=== PATIENT | male | born 1955 | race Caucasian/White ===

== ENCOUNTER → 2017-07-02 08:46 | Outpatient (CLI) | payer OTHER, SELFPAY ==
[2017-07-02 10:18] LABS: Absolute Neutrophil Count 3.1 X10^3/uL (2.0-7.7); Basophil# 0.03 X10^3/uL; Basophil% 0.6 % (0-1); Eosinophils% 4.2 % (0-5); Hematocrit 37.6 % (40-54); Hemoglobin 12.5 g/dl (13.0-16.5); Lymphocyte % 21.1 % (19-41); Mean Corp Hgb Conc 33.2 g/gl (32-36); Mean Corpuscular Hgb 32.1 pg (27.0-32.0); Mean Corpuscular Volume 96.7 fL (80-94); Mean Platelet Vol. 11.3 fl (6.2-12.0); Monocyte# 0.45 X10^3/uL; Monocyte% 9.5 % (0-10); Neutrophil # 3.07 X10^3/uL (2.7-7.7); Neutrophil % 64.6 % (47-70); Platelet Count 267 K/mm3 (150-450); RBC Distribution Width SD 40.9 fl (35.1-43.9); Red Blood Count 3.89 M/mm3 (4.6-6.2); White Blood Count 4.8 K/mm3 (4.4-11.0)
[2017-07-02 10:19] LABS: POSITIVE COUNT NO; POSITIVE DIFFERENTIAL NO; POSITIVE MORPHOLOGY NO
[2017-07-02 10:35] LABS: Hemoglobin A1c 5.2 % (4.2-6.3)
[2017-07-02 10:53] LABS: Vitamin D,25 Hydroxy 21.8 ng/mL (19.95-100.01)
[2017-07-02 10:57] LABS: ALB/GLOB Ratio 1.2 RATIO (0.9-2.4); AST(SGOT) 24 U/L (15-37); Alanine Aminotransfer ALT/SGPT 26 U/L (16-61); Albumin, Serum 4.2 g/dL (3.2-5.0); Alkaline Phosphatase 24 U/L (45-117); Anion Gap 8 (5-15); BUN 19 mg/dL (7-18); BUN/Creat Ratio 14.2 RATIO (10-20); CRP < 2.90 mg/L (0.0-3.0); Calcium,Total 8.8 mg/dL (8.5-10.1); Chloride 108 mmol/L (98-107); Cholesterol 190 mg/dL (200); Creatinine, Serum 1.34 mg/dL (0.70-1.30); EST Glomerular Filtration Rate 58 mL/min (>60); Est Glom Filt Rate - Afr Amer 70 mL/min (>60); Globulin 3.4 g/dL (2.2-4.2); Glucose 95 mg/dL (74-106); High Density Lipoprotein 45 mg/dL; Potassium 4.2 mmol/L (3.5-5.1); Protein, Total 7.6 g/dL (6.4-8.2); Sodium Level 144 mmol/L (136-145); Triglycerides 62 mg/dL; Very Low Density Lipoprotein 12 mg/dL (5-40)
[2017-07-02 16:44] LABS: T4 Free Direct 0.68 ng/dL (0.76-1.46)
[2017-07-03 13:00] LABS: ANTINUCLEAR ANTIBODIES DIRECT Negative (Negative)
== END ==
PROVIDERS: Family Provider Family Medicine; PCP Family Medicine; Visit Provider Family Medicine
DX: M25.50 Pain in unspecified joint (principal); E78.00 Pure hypercholesterolemia, unspecified; R20.9 Unspecified disturbances of skin sensation; E03.9 Hypothyroidism, unspecified
CPT/HCPCS: 36415; 80053; 80061; 82306; 83036; 84439; 84443; 85025; 86038; 86140

== ENCOUNTER → 2017-09-04 10:03 | Outpatient (CLI) | payer OTHER, SELFPAY ==
[2017-09-04 14:38] LABS: T4 Free Direct 0.88 ng/dL (0.76-1.46)
[2017-09-10 11:39] LABS: Anti-Thyroglobulin AB > 2250.0 IU/mL (0.0-0.9); Thyroglobulin RIA 14 ng/mL (.); Thyroid Peroxidase AB > 600 IU/mL (0-34)
== END ==
PROVIDERS: Family Provider Family Medicine; PCP Family Medicine; Visit Provider Family Medicine
DX: E03.9 Hypothyroidism, unspecified (principal)
CPT/HCPCS: 36415; 84432; 84439; 84443; 86376; 86800

== ENCOUNTER → 2018-01-05 10:58 | Outpatient (CLI) | payer OTHER, SELFPAY ==
[2018-01-05 12:43] LABS: Absolute Lymphocyte Count 0.98 X10^3/ul (0.83-4.51); Absolute Neutrophil Count 2.9 X10^3/uL (2.0-7.7); Basophil# 0.03 X10^3/uL; Basophil% 0.7 % (0-1); Eosinophil# 0.11 X10^3/uL; Eosinophils% 2.5 % (0-5); Hematocrit 41.1 % (40-54); Hemoglobin 13.6 g/dl (13.0-16.5); Lymphocyte # 0.98 X10^3/ul (4.0); Lymphocyte % 22.1 % (19-41); Mean Corp Hgb Conc 33.1 g/gl (32-36); Mean Corpuscular Volume 96.7 fL (80-94); Monocyte# 0.37 X10^3/uL; Monocyte% 8.3 % (0-10); Neutrophil # 2.94 X10^3/uL (2.7-7.7); Neutrophil % 66.2 % (47-70); Platelet Count 261 K/mm3 (150-450); RBC Distribution Width CV 12.1 % (11.6-14.6); RBC Distribution Width SD 41.1 fl (35.1-43.9); Red Blood Count 4.25 M/mm3 (4.6-6.2); White Blood Count 4.4 K/mm3 (4.4-11.0)
[2018-01-05 12:45] LABS: POSITIVE COUNT NO; POSITIVE DIFFERENTIAL NO; POSITIVE MORPHOLOGY NO
[2018-01-05 13:09] LABS: Hemoglobin A1c 5.4 % (4.2-6.3)
[2018-01-05 13:30] LABS: ALB/GLOB Ratio 1.1 RATIO (0.9-2.4); AST(SGOT) 20 U/L (15-37); Alanine Aminotransfer ALT/SGPT 23 U/L (16-61); Albumin, Serum 4.2 g/dL (3.2-5.0); Alkaline Phosphatase 24 U/L (45-117); Anion Gap 7 (5-15); BUN 16 mg/dL (7-18); Calcium,Total 8.9 mg/dL (8.5-10.1); Chloride 108 mmol/L (98-107); Cholesterol 222 mg/dL (200); Creatinine, Serum 1.23 mg/dL (0.70-1.30); EST Glomerular Filtration Rate 64 mL/min (>60); Est Glom Filt Rate - Afr Amer 77 mL/min (>60); Free T3 2.2 pg/mL (2.18-3.98); Globulin 3.7 g/dL (2.2-4.2); Glucose 89 mg/dL (74-106); High Density Lipoprotein 50 mg/dL; Potassium 3.8 mmol/L (3.5-5.1); Protein, Total 7.9 g/dL (6.4-8.2); Sodium Level 143 mmol/L (136-145); T4 Free Direct 0.83 ng/dL (0.76-1.46); Thyroid Stim Hormone (TSH) 7.64 uIU/mL (0.358-3.74); Triglycerides 111 mg/dL; Very Low Density Lipoprotein 22 mg/dL (5-40)
== END ==
PROVIDERS: Family Provider Family Medicine; PCP Family Medicine; Visit Provider Family Medicine
DX: E78.00 Pure hypercholesterolemia, unspecified (principal); E03.9 Hypothyroidism, unspecified; N52.9 Male erectile dysfunction, unspecified; E88.81 Metabolic syndrome and other insulin resistance
CPT/HCPCS: 36415; 80053; 80061; 83036; 84439; 84443; 84481; 85025

== ENCOUNTER → 2018-07-07 10:15 | Outpatient (CLI) | payer BC, SELFPAY ==
[2018-07-07 13:23] LABS: Free T3 2.3 pg/mL (2.18-3.98); T4 Free Direct 0.99 ng/dL (0.76-1.46); Thyroid Stim Hormone (TSH) 5.07 uIU/mL (0.358-3.74)
== END ==
PROVIDERS: Family Provider Family Medicine; PCP Family Medicine; Visit Provider Family Medicine
DX: E03.9 Hypothyroidism, unspecified (principal)
CPT/HCPCS: 36415; 84439; 84443; 84481

== ENCOUNTER → 2018-09-15 | Outpatient (CLI) | payer BC, SELFPAY ==
[2018-09-15 10:42] LABS: T4 Free Direct 0.96 ng/dL (0.76-1.46)
== END | disposition home or self-care (01) ==
LOC: MFPLAB 08:19
PROVIDERS: Family Provider Family Medicine; PCP Family Medicine; Referring Provider Family Medicine; Visit Provider Family Medicine
DX: E03.9 Hypothyroidism, unspecified (principal)
CPT/HCPCS: 36415; 84439; 84443

== ENCOUNTER 2019-03-14 15:13 | Emergency (ER) | payer BC, SELFPAY ==
[2019-03-14 15:16] VITALS: BP 123/65; PULSE 43; RESP 20; TEMP 36.3; O2SAT 99; BMI 28.6
--- NOTE | 2019-03-14 17:04 | ED.VISSUMM ---
- ER Visit Summary Date of Service: 03/14/19 Chief Complaint: Umbilical hernia History of Present Illness: The patient is a [address] Mohinder Caldwell. He reports that he has had an umbilical hernia for years. States that today at 1:30 PM this has become painful and he is unable to reduce it. He currently describes a cramping pain Zeta 10 worsened 3-10 currently. Is worsened with standing or standing. Is relieved by laying down. Is had nausea without vomiting. No diarrhea. His last bowel was today. No melena hematochezia. He is still passing flatus. Physical Examination: Vitals: Stable. Afebrile. General: Well-nourished and well-developed. Head: Normocephalic atraumatic. Neck: Supple, no lymphadenopathy. No JVD. Nontender. Cardiovascular: Regular rate and rhythm. No murmurs. Respiratory: No respiratory distress. Clear to auscultation bilaterally. Abdominal: Soft, nontender, nondistended, normal bowel sounds. No guarding, rebound, or peritoneal signs. Approximately 3 cm hernia just superior to his umbilicus. There are herniated contents present. This is reduced without difficulty. Back: Nontender. Extremities: Nontender, no edema. Skin: Normal color, no rash. Neurologic: Alert and oriented ?3. Cranial nerves II through XII are intact. Normal strength and sensation. Psych: Normal affect. Emergency Department Course and Treatment: Patient had this hernia reduced with gentle pressure. He did not require pain medications. He tolerated this well. When he stood up the hernia did protrude again. However, he is able to reduce this without any difficulty at this time. Treatment Plan: I discussed the patient that if the hernia is unable to be reduced or becomes painful he should return to emerge department. He was also discussed with Dr. Emery. Instructed to follow-up 2 days for more definitive management of this. Return to the emergency department for any worsening symptoms. Disposition: To home in improved and stable condition. Impression: 1. Umbilical hernia. This note was generated with [employer] software. It may contain incorrect words, spelling, and punctuation that were not noted in review of the chart prior to signing ED Disposition - Plan for ED Patient: Disposition: Home or Assisted Living Instructions: HERNIA (Inguinal, Ventral, Umbilical) Referrals: Maximilian Farrell MD [STAFF PHYSICIAN] - 2 Days
[2019-03-14 17:13] VITALS: RESP 18
== END 2019-03-14 17:17 | disposition home or self-care (01) ==
PROVIDERS: Emergency Provider Emergency Medicine; Family Provider Family Medicine; PCP Family Medicine
DX: K42.9 Umbilical hernia without obstruction or gangrene (principal); E11.9 Type 2 diabetes mellitus without complications; E78.00 Pure hypercholesterolemia, unspecified; Z79.82 Long term (current) use of aspirin; Z79.84 Long term (current) use of oral hypoglycemic drugs; Z79.899 Other long term (current) drug therapy
CPT/HCPCS: 99282; A4216

== ENCOUNTER → 2019-03-25 09:40 | Outpatient (CLI) | payer BC, SELFPAY ==
[2019-03-14 15:16] VITALS: BMI 28.6
[2019-03-25 12:17] LABS: Absolute Lymphocyte Count 0.92 X10^3/uL (0.83-4.51); Absolute Neutrophil Count 2.7 X10^3/uL (2.0-7.7); Basophil# 0.03 X10^3/uL; Basophil% 0.7 % (0-1); Eosinophil# 0.12 X10^3/uL; Eosinophils% 2.8 % (0-5); Hematocrit 40.8 % (40-54); Hemoglobin 13.2 g/dL (13.0-16.5); Lymphocyte # 0.92 X10^3/ul (4.0); Lymphocyte % 21.7 % (19-41); Mean Corp Hgb Conc 32.4 g/dL (32-36); Mean Corpuscular Hgb 31.7 pg (27.0-32.0); Mean Corpuscular Volume 98.1 fL (80-94); Mean Platelet Vol. 10.9 fl (6.2-12.0); Monocyte# 0.41 X10^3/uL; Monocyte% 9.7 % (0-10); NRBC Flagged by Analyzer 0 % (0-5); Neutrophil # 2.73 X10^3/uL (2.7-7.7); Neutrophil % 64.6 % (47-70); Platelet Count 303 K/mm3 (150-450); RBC Distribution Width CV 11.8 % (11.6-14.6); RBC Distribution Width SD 42.6 fl (35.1-43.9); Red Blood Count 4.16 M/mm3 (4.6-6.2); White Blood Count 4.2 K/mm3 (4.4-11.0)
[2019-03-25 12:30] LABS: ALB/GLOB Ratio 1.2 RATIO (0.9-2.4); AST(SGOT) 21 U/L (15-37); Alanine Aminotransfer ALT/SGPT 27 U/L (16-61); Albumin, Serum 4.1 g/dL (3.2-5.0); Alkaline Phosphatase 30 U/L (45-117); Anion Gap 6 (5-15); BUN 20 mg/dL (7-18); BUN/Creat Ratio 16.4 RATIO (10-20); Calcium,Total 9.2 mg/dL (8.5-10.1); Chloride 110 mmol/L (98-107); Cholesterol 193 mg/dL (200); Creatinine, Serum 1.22 mg/dL (0.70-1.30); EST Glomerular Filtration Rate 64 mL/min (>60); Est Glom Filt Rate - Afr Amer 78 mL/min (>60); Globulin 3.4 g/dL (2.2-4.2); Glucose 96 mg/dL (74-106); High Density Lipoprotein 54 mg/dL; International Normalized Ratio 1.1; PSA,Total - Annual Screen 0.96 ng/mL (0.00-4.00); Potassium 4.3 mmol/L (3.5-5.1); Protein, Total 7.5 g/dL (6.4-8.2); Prothrombin Time (Protime)PT. 13.5 SECONDS (11.7-14.9); Sodium Level 144 mmol/L (136-145); T4 Free Direct 1.02 ng/dL (0.76-1.46); Thyroid Stim Hormone (TSH) 3.94 uIU/mL (0.358-3.74); Triglycerides 66 mg/dL; Very Low Density Lipoprotein 13 mg/dL (5-40)
[2019-03-25 12:31] LABS: Partial Thromboplast Time 30.2 Seconds (24.1-36.2)
== END ==
PROVIDERS: Family Provider Family Medicine; PCP Family Medicine; Visit Provider Family Medicine
DX: Z00.00 Encounter for general adult medical examination without abnormal findings (principal); K42.9 Umbilical hernia without obstruction or gangrene; E78.00 Pure hypercholesterolemia, unspecified; E03.9 Hypothyroidism, unspecified
CPT/HCPCS: 80053; 80061; 84153; 84439; 84443; 85025; 85610; 85730; G0103

== ENCOUNTER 2019-04-14 09:03 | Day surgery (SDC) | payer BC, SELFPAY ==
--- NOTE | 2019-04-13 19:06 | PCM.HP.BLA ---
History and Physical Date of Admission: 04/14/19 HISTORY AND PHYSICAL ? Shan Gomez 1955 ? ? REFERRING PHYSICIAN: ??Self, ? CHIEF COMPLAINT: ??Umbilical Hernia Repair- ? HPI: Shan is a 63 year old male with a complaint of?a bulge ?and discomfort ?in his?umbilical region. ?The patient notes discomfort in this area with lifting and coughing.??He has noticed a hernia there which has been relatively asymptomatic for a very long time. ?He still works lifting heavy items. ?On March 14 he was lifting pallets and/or stones and noted pain at his umbilicus. ?He presented to [facility] emergency department. ?The hernia was able to reduced with gentle pressure. ?He follows up now for semi-electively repair of his umbilical hernia. ? ? The patient notes no symptoms of bowel obstruction and denies nausea or vomiting. The patient was seen by?the emergency room physician?who felt the patient has a hernia. ?Shan was referred for evaluation and treatment. ? PAST MEDICAL HISTORY PAST MEDICAL HISTORY Diagnosis Date ? Arthritis ? ? Hypercholesteremia ? ? Hypothyroid ? ? Umbilical hernia ? ? ? PAST SURGICAL HISTORY PAST SURGICAL HISTORY Procedure Laterality Date ? NONE ? Current Outpatient Medications: Fenofibrate 120 mg tab Fenofibrate Fenofibrate Active 160 MG DAILY March 14, 2019 4:35pm 03-14-2019 ?[facility] ([id number]) metFORMIN (GLUCOPHAGE) 1,000 mg tablet metFORMIN Metformin Hcl Active 500 MG DAILY March 14, 2019 4:35pm 03-14-2019 ?[facility] ([id number]) aspirin, enteric coated (ASPIRIN, ENTERIC COATED) 81 mg EC tablet Aspirin Aspirin Active 81 MG DAILY@0800 March 14, 2019 5:15pm 03-14-2019 ?[facility] ([id number]) levothyroxine (SYNTHROID) 112 mcg tablet ? No current facility-administered medications for this visit.? ? ALLERGIES:?Patient has no known allergies. ? PERSONAL HISTORY:?Social History ??Socioeconomic History ?Marital status: ?Spouse name: Not on file ?Number of children: Not on file ?Years of education: Not on file ?Highest education level: Not on file ??Occupational History ?Not on file ??Social Needs ?Financial resource strain: Not on file ?Food insecurity: ?Worry: Not on file ?Inability: Not on file ?Transportation needs: ?Medical: Not on file ?Non-medical: Not on file ??Tobacco Use ?Smoking status: Former Smoker ?Smokeless tobacco: Never Used ??Substance and Sexual Activity ?Alcohol use: Yes ?Comment: once or twice a week ?Drug use: Not on file ?Sexual activity: Not on file ??Lifestyle ?Physical activity: ?Days per week: Not on file ?Minutes per session: Not on file ?Stress: Not on file ??Relationships ?Social connections: ?Talks on phone: Not on file ?Gets together: Not on file ?Attends protestant service: Not on file ?Active member of club or organization: Not on file ?Attends meetings of clubs or organizations: Not on file ?Relationship status: Not on file ?Intimate partner violence: ?Fear of current or ex partner: Not on file ?Emotionally abused: Not on file ?Physically abused: Not on file ?Forced sexual activity: Not on file ??Other Topics ?Concerns: ?Not on file ??Social History Narrative ?Not on file ?? ? FAMILY HISTORY:? FAMILY HISTORY FAMILY HISTORY Problem Relation Age of Onset ? Heart Mother ? ? Stroke Father ? ? Diabetes Father ? ? REVIEW OF SYMPTOMS: ??The review of systems data was entered by the nurse and reviewed by me ? Nursing Notes: Larissa Vergara LPN ?03/19/2019 ?1:35 PM ?Signed REVIEW OF SYSTEMS: ?General:???The patient denies fatigue, denies weight loss, denies weight gain, denies feeling hot, and denies feelings of cold. ?Eyes: ?The patient denies glaucoma, denies eye injury/surgery, does not wear glasses or contacts. ?Ear/Nose/Throat: ?The patient denies allergies, denies hayfever, NOTES ear infections, and denies bloody noses. ?Cardiovascular: ?The patient denies chest pain, denies heart disease, denies high blood pressure,denies cardiac stent, denies prior heart attack, denies irregular heart beat, NOTES high cholesterol, ?denies poor circulation, denies heart failure, other cardiac issues, denies claudication, denies cold feet, denies peripheral arterial stent. ?Respiratory: ?The patient denies tuberculosis, denies pneumonia, denies frequent cough, denies pulmonary embolism, denies shortness of breath, and denies coughing up blood. ?Gastrointestinal: ?The patient denies difficulty swallowing, denies acid reflux, denies ulcers, denies vomiting, denies jaundice/hepatitis, denies gallbladder problems, denies black or tarry stools, denies hemorrhoids, denies bleeding from rectum, denies diverticulitis, denies constipation, denies diarrhea, denies loss of stool control, and NOTES hernias. ?Kidney/Bladder: ?The patient denies kidney stones, denies urine infections, and denies bloody urine. ?Skin: ?The patient denies a history of skin cancer, denies bleeding/changing moles, and denies a history of skin rash. ?Neurologic: ?The patient denies a history of epilepsy/convulsions, denies headaches, denies head/spinal injuries, and denies stroke/TIA. ?Psychiatric: ?The patient denies psychiatric medications, denies depression, and denies voices, denies substance abuse. ?Endocrine: ?The patient NOTES thyroid disorders, denies diabetes, and denies hormonal problems. ?Hematologic: ?The patient denies a history of bruising, denies bleeding, and denies anemia, denies blood clots. ?Infections: ?The patient denies a history of measles and mumps, denies rheumatic fever, and denies sexually transmitted diseases. ?Musculoskeletal: ?The patient denies back pain/injury, denies back problems, denies sciatica, denies knee/foot trouble, NOTES arthritis, or denies gout. ? ? When was patient's last Mammogram screening? N/A ? ?Last Colonoscopy: ?None ? Larissa Vergara LPN ? PHYSICAL EXAMINATION: ? General: ?The patient is 63 year old male, well nourished, well hydrated in no acute distress. ?The patient is oriented to time, place, and person. ? VITALS:?Blood pressure 150/66, pulse 63, temperature 36.6 ?C (97.9 ?F), temperature source Temporal Artery, resp. rate 18, height 170.2 cm (5' 7), weight 83.5 kg (184 lb), SpO2 98 %.?Body mass index is 28.82 kg/m?.? ? HEENT: ?Normal cephalic, ataumatic, pupils are equally round, sclera are anicteric, mucous membranes are moist, oropharynx is clear. ?Neck has no masses, asymmetry or lymphadenopathy. ?Thyroid is unremarkable. ? Respiratory: ?Clear to auscultation and percussion. ?Normal respiratory excursion and pattern. ? Cardiac: ?Examination is regular rate and rhythm. ? Abdominal exam: ?Soft, nontender, ?with no palpable masses. ?No hepatosplenomegaly. ?A?small, reducible umbilical hernia, no right or left inguinal hernias are noted ? Rectal exam:??exam deferred ? Extremities: ?no clubbing, cyanosis or edema. ?No adenopathy. ? Other: ? ? LABORATORY VALUES: As Noted ? RADIOLOGIC STUDIES: ?As Noted ? Assessment ? IMPRESSION:?umbilical hernia ? PLAN: ??My plan is to perform a umbilical hernia repair with?possible?mesh. ?The planned surgical procedure was discussed extensively with the patient. ?The risks, benefits, anticipated outcomes and possible complications were mentioned. ?Shan skelton that all hernia repair surgery has a chance of recurrence and/or chronic post operative pain. ?My staff has also explained the procedure in understandable terms and the patient was given the option to take printed material concerning the planned procedure. ?The patient had the opportunity to ask questions concerning the planned procedure. ?The patient freely consents to the planned procedure. ? ? ? A letter was sent to ?No primary care provider on file.?indicating the above finding for this patient. ? Diagnoses:?(K42.9) Umbilical hernia without obstruction and without gangrene ?(primary encounter diagnosis) ? Anticipated CPT Code:?umbilical hernia repair ?- 24808-889 ? Anticipated Anesthetic:?General ? Patient weight:??Blood pressure 150/66, pulse 63, temperature 36.6 ?C (97.9 ?F), temperature source Temporal Artery, resp. rate 18, height 170.2 cm (5' 7), weight 83.5 kg (184 lb), SpO2 98 %.?BMI: ?Body mass index is 28.82 kg/m?. ? Planned antibiotic:?Ancef 2gm IVPB regional clinical director to OR ? SCDs needed -?Yes ? Return to Clinic: The patient is instructed to follow-up with me?1 week post operatively. ? Maximilian Farrell MD
[2019-04-14] VITALS (8 sets, daily range): BP systolic 99–180; BP diastolic 58–82; PULSE 43–84; RESP 16; TEMP 36.2–36.8; O2SAT 91–100; BMI 29.4
--- NOTE | 2019-04-14 09:18 | EKG12_ITS ---
Test Reason : PREOP Blood Pressure : / mmHG Vent. Rate : 047 BPM Atrial Rate : 047 BPM P-R Int : 184 ms QRS Dur : 106 ms QT Int : 420 ms P-R-T Axes : 028 -37 -01 degrees QTc Int : 371 ms Sinus bradycardia with Premature atrial complexes Left axis deviation Abnormal ECG When compared with ECG of 15-MAY-2006 11:32, Premature atrial complexes are now Present Confirmed by MARIO ESTRELLA, SHERYL ([id number]), editor school photograph DERRELL ASHER ([id number]) on 04/19/2019 10:17:26 AM Referred By: Maximilian Farrell Confirmed By:SHERYL MARTIN MD
[2019-04-14] MEDS: Lactated Ringers 1,000 ML 100 ML IV (09:35)
[2019-04-14 09:46] LABS: Bedside Glucose 93 mg/dL (70-110)
[2019-04-14 09:56] LABS: Hemoglobin A1c 5.3 % (4.2-6.3)
--- NOTE | 2019-04-14 10:50 | HERN_PTH ---
PATIENT: FLORY ORTIZ LOC: [facility] [place] U#:[id number] AGE/SX: 63/M ROOM: RE04/14/[address]: Dr. Maximilian Farrell MD : 1955 BED: DIS: 04/14/2019 SPEC #: [id number] RECD: 04/14/19 16:08 STATUS: KRUNAL REQ #: [id number] ANANYA: 04/14/19 10:[address]: Maximilian Farrell DEPT: SURGICAL PATHOLOGY RECD BY: Sid Lopez ENTERED: 04/15/19 11:23 SP TYPE: Hernia OTHR DR: Dr. Mohinder Caldwell MD Tissues: HERNIA Procedures: Surgery Specimen Level II HEADER OPERATION: Umbilical hernia repair PRE-OP DIAGNOSIS: Umbilical hernia TISSUE SUBMITTED: Hernia sac MICROSCOPIC DIAGNOSIS Hernia sac: Fragments of fibroadipose and fibroconnective tissue, consistent with hernia sac. SJ:sumaya 04/16/19 MICROSCOPIC DESCRIPTION Slides are reviewed. GROSS DESCRIPTION Received in fixative is one container labeled with the patient's name and designated hernia sac. The specimen consists of two irregular fragments of light larios soft tissue that in aggregate measure 3 x 2.5 x 0.3 cm. No mass lesion is identified. The entire specimen is submitted in one cassette. / SJ:rg 04/15/19 TC:5 CPT: 09150
[2019-04-14] MEDS: Cefazolin 2 GM in 0.9% Normal Saline 100 ML IV (10:51)
[2019-04-14] MEDS: Bupivacaine Mpf 0.5% 30 ML VIAL (11:49)
--- NOTE | 2019-04-14 11:54 | PCM.OPRPT ---
Report of Operation Date of Procedure: 04/14/19 Pre-Operative Diagnosis: umbilical hernia Post-Operative Diagnosis: umbilical hernia Surgery/Procedure Performed:: umbilical hernia repair with mesh - 6.4cm ventralex Anesthesiologist: Darrius Cevallos - ASA3 Specimen's removed: hernia sac Estimated Blood Loss (mL): 5 Fluids Replaced: 800 Description of Procedure: The patient was brought to the operating suite. Sign in was performed verifying patient, site, procedure, position, and DVT prophylaxis with SCDs. Patient received 2 g Ancef antibiotic prophylaxis. Following induction of general anesthetic, the patient?s abdomen was prepped and draped in the usual fashion. Timeout was performed verifying patient, site, position. Local anesthetic was injected . A curvilinear incision was made and dissection carried down to the umbilical root fascia. Dissection was continued around the umbilical root and the umbilical skin was dissected off the hernia sac. An extraperitoneal space was created. The fascia was noted to be weak and therefore mesh was planned to be placed. The hernia sac was opened to clean fascial margin yielding a defect approximately 1-1/2 cm. A preperitoneal space was created sharply and using electrocautery to allow placement of the mesh. The ventralex ST medium sized or 6.4 cm mesh was then secured in the preperitoneal space at the outer ring with 8 interrupted 0 Prolene sutures. Then multiple interrupted 0 Prolene sutures were placed at the inner fascial margin to the mesh. The 2 tails were cut to length and secured to the anterior fascia. Following this the umbilical root was tacked back down with a 3-0 Vicryl suture. Subcutaneous fat was closed with interrupted 3-0 Vicryl suture. Skin was closed with a running 4-0 Monocryl subcuticular sutures. Steri-Strips and bandages were applied. The patient was brought to recovery room in stable condition. Grafts/Implants Used: 6.4cm ventralex - Ref [id number] Lot [id number] Exp 01/20/2021
--- NOTE | 2019-04-14 11:55 | DCINST_ITS ---
Discharge Diet: Light diet - advance as tolerated Discharge Activity: Return to Normal Activity, May Drive - when you are no longer taking narcotic pain medications., May Shower - with the bandage in place 1-2 days after surgery. Lifting Restrictions: 20 pounds for 8 weeks. Additional Activity Instructions:: Climbing stairs is fine, walking is encouraged. Sitting in bed may be uncomfortable. Sitting up using your lateral muscles (sitting up sideways) is usually more comfortable. Do not drive, work heavy equipment of sign legal documents for 24 hours. If your hernia repair was an ingunial repair, you may have scrotal swelling, an ice pack and/or athletic support can provide more comfort. Pain medications may cause nausea, you should typically eat light foods as you take your pain medications. Pain medications may also cause constipation. If you have difficulty with this, discuss with your doctor. Call your doctor if your incision/area has: Continuous Slow Oozing, Sudden Increased Bleeding, Increased Pain/ Swelling, Increased Redness, Foul Smelling Discharge Call your doctor if you observe: Fever of 101 or Higher Suture Line Care: Avoid Pulling/Pushing, Avoid Pinching/Bending Additional Dressing/Incision Instructions:: Leave the operative bandage on for 2-3 days. When you remove the bandage, leave the steri-strips on place until your follow up appointment or they fall off. Allergies/Adverse Reactions: Allergies No Known Allergies Allergy (Verified 04/14/19 09:22) Medications to take at Discharge Aspirin [Aspirin, Baby] 81 mg PO DAILY@0800 03/14/19 Fenofibrate 160 mg PO DAILY 03/14/19 Levothyroxine Sodium [Synthroid] 125 mcg PO DAILY 03/14/19 Metformin HCl [Metformin HCl ER] 500 mg PO DAILY 03/14/19 Cholecalciferol (Vitamin D3) [Vitamin D3] 1,000 unit PO DAILY 04/07/19 Multivitamin with Minerals [Multiple Vitamin] 1 ea PO DAILY 04/07/19 Oxycodone HCl/Acetaminophen [Percocet 5/325] 1 tab PO Q4H PRN PRN 5 Days #12 tab 04/14/19 The following prescriptions were given: Oxycodone HCl/Acetaminophen [Percocet 5/325] 1 tab PO Q4H PRN PRN 5 Days #12 tab PRN Reason: Pain Prescription Printed Primary Care Physician: Mohinder Caldwell MD [Primary Care Provider] - Test Results: Test results from this visit will be discussed in further detail at your follow- up appointment, if applicable. Please Follow Up With: Maximilian Farrell MD - [phone] When: Plan to have a follow up appointment in 7 days. Call to schedule.
[2019-04-14] MEDS: Lactated Ringers 1,000 ML 75 ML IV (12:24)
[2019-04-14] MEDS: oxyCODONE 5 MG Tablet PO (13:10)
== END 2019-04-14 13:45 | disposition home or self-care (01) ==
LOC: SDC 09:04 → AC 09:06
PROVIDERS: Anesthesiology; Family Provider Family Medicine; PCP Family Medicine; Referring Provider Surgery; Visit Provider Surgery
PROC: (CPT 49585; principal; 2019-04-14 10:35)
DX: K42.9 Umbilical hernia without obstruction or gangrene (principal); M19.90 Unspecified osteoarthritis, unspecified site; E78.00 Pure hypercholesterolemia, unspecified; E03.9 Hypothyroidism, unspecified; E11.9 Type 2 diabetes mellitus without complications; Z79.84 Long term (current) use of oral hypoglycemic drugs; Z79.82 Long term (current) use of aspirin; Z79.899 Other long term (current) drug therapy; Z87.891 Personal history of nicotine dependence
CPT/HCPCS: 49585; 36415; 82962; 83036; 88302; 93005; C1781; J7120; J2405

== ENCOUNTER → 2020-03-28 09:32 | Outpatient (CLI) | payer BC, SELFPAY ==
[2019-04-14 09:24] VITALS: BMI 29.4
[2020-03-28 12:07] LABS: Absolute Lymphocyte Count 1.16 X10^3/uL (0.83-4.51); Absolute Neutrophil Count 2.9 X10^3/uL (2.0-7.7); Basophil# 0.04 X10^3/uL; Basophil% 0.8 % (0-1); Eosinophil# 0.18 X10^3/uL; Eosinophils% 3.8 % (0-5); Hematocrit 43.1 % (40-54); Hemoglobin 13.8 g/dL (13.0-16.5); Lymphocyte # 1.16 X10^3/ul (4.0); Lymphocyte % 24.3 % (19-41); Mean Corpuscular Hgb 31.3 pg (27.0-32.0); Mean Corpuscular Volume 97.7 fL (80-94); Mean Platelet Vol. 10.9 fl (6.2-12.0); Monocyte# 0.48 X10^3/uL; Monocyte% 10.1 % (0-10); NRBC Flagged by Analyzer 0 % (0-5); Neutrophil % 60.8 % (47-70); Platelet Count 286 K/mm3 (150-450); RBC Distribution Width CV 11.8 % (11.6-14.6); RBC Distribution Width SD 42.6 fl (35.1-43.9); Red Blood Count 4.41 M/mm3 (4.6-6.2); White Blood Count 4.8 K/mm3 (4.4-11.0)
[2020-03-28 12:31] LABS: ALB/GLOB Ratio 1.2 RATIO (0.9-2.4); AST(SGOT) 24 U/L (15-37); Alanine Aminotransfer ALT/SGPT 30 U/L (16-61); Albumin, Serum 4.3 g/dL (3.2-5.0); Alkaline Phosphatase 33 U/L (45-117); Anion Gap 6 (5-15); BUN 22 mg/dL (7-18); BUN/Creat Ratio 16.9 RATIO (10-20); Calcium,Total 8.8 mg/dL (8.5-10.1); Chloride 105 mmol/L (98-107); Cholesterol 221 mg/dL (200); EST Glomerular Filtration Rate 59 mL/min (>60); Est Glom Filt Rate - Afr Amer 72 mL/min (>60); Globulin 3.6 g/dL (2.2-4.2); Glucose 85 mg/dL (74-106); High Density Lipoprotein 57 mg/dL; Protein, Total 7.9 g/dL (6.4-8.2); Sodium Level 140 mmol/L (136-145); Thyroid Stim Hormone (TSH) 3.83 uIU/mL (0.358-3.74); Triglycerides 144 mg/dL; Very Low Density Lipoprotein 29 mg/dL (5-40)
== END ==
PROVIDERS: PCP Family Medicine; Referring Provider Family Medicine; Visit Provider Family Medicine
DX: M19.90 Unspecified osteoarthritis, unspecified site (principal); E78.00 Pure hypercholesterolemia, unspecified; E03.9 Hypothyroidism, unspecified
CPT/HCPCS: 36415; 80053; 80061; 84443; 85025

== ENCOUNTER → 2021-03-30 09:39 | Outpatient (CLI) | payer BC, SELFPAY ==
--- NOTE | 2021-03-30 09:42 | RAD_ITS ---
STUDY: X-RAY - PELVIS REASON FOR EXAM: Male, 65 years old. PAIN TECHNIQUE: One view of the pelvis was obtained. COMPARISON: None. FINDINGS: There is a non-specific bowel gas pattern. Normal visualized soft tissue structures. Normal bilateral iliac wings, sacroiliac joints and visualized sacrum. Normal visualized bilateral superior and inferior pubic rami. Normal pubic symphysis. Normal ischial tuberosities. Normal visualized right femoral head. Normal right acetabulum. Normal right hip joint. Normal visualized left femoral head. Normal left acetabulum. Normal left hip joint. RAD/Pelvis 1 or 2 Views IMPRESSION: Normal x-ray examination of the pelvis. Electronically Signed: Manuel Dewitt MD at 10:31 EDT , Service support ,
[2021-03-30 12:48] LABS: Hemoglobin A1c 5.2 % (3.8-5.6)
[2021-03-30 12:52] LABS: ALB/GLOB Ratio 1.2 RATIO (0.9-2.4); AST(SGOT) 30 U/L (15-37); Alanine Aminotransfer ALT/SGPT 33 U/L (16-61); Albumin, Serum 4.3 g/dL (3.2-5.0); Alkaline Phosphatase 31 U/L (45-117); Anion Gap 5 (5-15); BUN 17 mg/dL (7-18); BUN/Creat Ratio 12.7 RATIO (10-20); Calcium,Total 9.4 mg/dL (8.5-10.1); Chloride 107 mmol/L (98-107); Cholesterol 219 mg/dL (200); Creatinine, Serum 1.34 mg/dL (0.70-1.30); EST Glomerular Filtration Rate 57 mL/min (>60); Est Glom Filt Rate - Afr Amer 69 mL/min (>60); Globulin 3.6 g/dL (2.2-4.2); Glucose 95 mg/dL (74-106); High Density Lipoprotein 56 mg/dL; Potassium 4.3 mmol/L (3.5-5.1); Protein, Total 7.9 g/dL (6.4-8.2); Sodium Level 141 mmol/L (136-145); T4 Free Direct 1.09 ng/dL (0.76-1.46); Triglycerides 72 mg/dL; Very Low Density Lipoprotein 14 mg/dL (5-40)
== END ==
PROVIDERS: PCP Family Medicine; Referring Provider Family Medicine; Visit Provider Family Medicine
DX: Z00.00 Encounter for general adult medical examination without abnormal findings (principal); E03.9 Hypothyroidism, unspecified; E66.3 Overweight; M54.50 Low back pain, unspecified; E88.81 Metabolic syndrome and other insulin resistance
CPT/HCPCS: 36415; 72170; 80053; 80061; 83036; 84439; 84443

== ENCOUNTER 2021-04-30 18:30 | Outpatient (RCR) | payer BC, SELFPAY ==
--- NOTE | 2021-04-09 19:34 | HP.PTEVAL ---
Patient's Visit Information FLORY ORTIZ is a 65 year old M referred to Physical Therapy by Dr. Mohinder Caldwell MD with a diagnosis of LUMBAR BACK PAIN. Date of Evaluation: 04/09/21 Physical Therapist: Dann Shell PT, Cert MDT, OCS - Visit Plan Frequency: 2x /Week Duration: 4 Weeks Plan: PT INTERVETIONS DLS ,LUMBAR ROM ,POSTURAL EX'S AND MODALTIES - Subjective This 65 y/o male presents to physical therapy with back pain. Patient has right lumbar pain ~ 4 months. Patient had no mechanism injury ,just insidious onset. Pain is located right side. Seen DR hough PT . X-rays pelvis -. Pain does occasional radiate to hip. Aggravating twisting, leaning back ,laying on right side, driving affects. Alleviating walking ,movement better. Coughing /sneezing -. Bowel/bladder -. Bowel/bladder -. Pain can affects sleeping. No h/o trauma. Patient symptoms affects QOL and function. SOCIAL: . VOCATION: retired. SOCIAL: single - Pain Right Back Pain Intensity (Out of 10): 3 Pain Intensity Range: 10 - Objective POSTURE: mild forward posture. GAIT: reciprocal pattern. NEURO: denies paresthesia/tingling reflexes L3-4,L4-5,L5-S1 2/3. PALAPTION: right SI. SYMMTRIES: align. LUMBAR ROM: flexion min loss, extension mod loss pain ,side glides mod loss to right with pain, left min loss. FLEXABLITY: hams WFL - Special Tests L/S Slump test left side: Negative L/S Slump test right side: Negative L/S Left Straight Leg Raise: Negative L/S Right Straight Leg Raise: Negative Lumbar Standing: Flexion - Mechanical Response: No effect Lumbar Standing: Flexion - Symptoms During Testing: No effect Lumbar Standing: Flexion - Symptoms After Testing: No effect Lumbar Standing: Extension - Mechanical Response: No effect Lumbar Standing: Extension - Symptoms During Testing: Increases Lumbar Standing: Extension - Symptoms After Testing: No worse Lumbar Standing: Right Side Glides - Mechanical Response: No effect Lumbar Standing: Right Side [place] - Symptoms During Testing: Increases Lumbar Standing: Right Side [place] - Symptoms After Testing: No worse Lumbar Standing: Left Side [place] - Mechanical Response: No effect Lumbar Standing: Left Side [place] - Symptoms During Testing: No effect Lumbar Standing: Left Side [place] - Symptoms After Testing: No effect Lumbar Lying: Flexion - Mechanical Response: No effect Lumbar Lying: Flexion - Symptoms During Testing: Increases Lumbar Lying: Flexion - Symptoms After Testing: No worse Lumbar Lying: Extension - Mechanical Response: No effect Lumbar Lying: Extension - Symptoms During Testing: Increases Lumbar Lying: Extension - Symptoms After Testing: No worse - Balance/Special Test Scores Oswestry Low Back Score: 13 - Goals Goal 1:: I with HEP for back pain Goal Time Frame: 4-6 Weeks Goal 2:: Patient to improve posture /body mechanics 90 % of the time Goal Time Frame: 4-6 Weeks Goal 3:: Patient to demonstrate 50% improvement with decrease back pain to improve function Goal Time Frame: 4-6 Weeks Goal 4:: Patient improve lumbar ROM for function of recovery Goal Time Frame: 4-6 Weeks Goal 5:: Patient improve back owestry score by 5 points to improve function and QOL Goal Time Frame: 4-6 Weeks - Rehabilitation Potential Physical Therapy Diagnosis: This patient has right lumbar pain with pain with extension and side glides to right affects certain activities and function thus benefit from skilled PT Rehabilitation Potential: Good - Anticipated Interventions Patient/Client Instruction: Educate patient on: Condition, Plan of Care For the Purpose of:: To decrease pain, To increase ROM, To improve muscle performance and motor function, To improve ability to perform ADL's, To increase tolerance to activity/condition/position, To improve ability of physical actions for home/community/work/leisure, To improve health of tissue, To decrease soft tissue restriction, To increase flexibility/ROM, To reduce risk of recurrence, To prevent re-injury Therapeutic Exercise to Include: Strength training, Endurance training, Body mechanics, Postural training, Flexibilty training, Active ROM, Dynamic Lumbar Stabilization, Jeni Exercises For the Purpose of:: To decrease pain, To increase ROM, To improve muscle performance and motor function, To improve ability to perform ADL's, To increase tolerance to activity/condition/position, To improve ability of physical actions for home/community/work/leisure, To improve health of tissue, To decrease soft tissue restriction, To increase flexibility/ROM, To reduce risk of recurrence, To prevent re-injury TENS: Yes IF ES: Yes Cryotherapy (ice pack, ice massage): Yes Thermo therapy (hot pack): Yes Ultrasound (thermal/non thermal): Yes For the Purpose of:: To decrease pain, To increase ROM, To improve nutrient delivery to tissue, To increase oxygenation perfusion, To improve health of tissue, To decrease soft tissue restriction Thank you for the opportunity to evaluate your patient. For Medicare and Medicare HMO plans, please review the plan of care and approve it. It will need to be FAXED BACK to us at [phone] for Medicare purposes. For Medicare only, by signing this I certify the plan of care. Please let me know if there are questions or concerns regarding this plan of care. Physician Signature: Date:
--- NOTE | 2021-07-20 08:00 | HP.PT.NRP ---
FLORY ORTIZ was seen in my office for initial evaluation on 04/09/21. The following Plan of Care was established for this patient: Initial Frequency: 2x /Week Initial Duration: 4 Weeks Patient/Client Instruction: Educate patient on: Condition, Plan of Care For the Purpose of:: To decrease pain, To increase ROM, To improve muscle performance and motor function, To improve ability to perform ADL's, To increase tolerance to activity/condition/position, To improve ability of physical actions for home/community/work/leisure, To improve health of tissue, To decrease soft tissue restriction, To increase flexibility/ROM, To reduce risk of recurrence, To prevent re-injury Therapeutic Exercise to Include: Strength training, Endurance training, Body mechanics, Postural training, Flexibilty training, Active ROM, Dynamic Lumbar Stabilization, Jeni Exercises For the Purpose of:: To decrease pain, To increase ROM, To improve muscle performance and motor function, To improve ability to perform ADL's, To increase tolerance to activity/condition/position, To improve ability of physical actions for home/community/work/leisure, To improve health of tissue, To decrease soft tissue restriction, To increase flexibility/ROM, To reduce risk of recurrence, To prevent re-injury TENS: Yes IF ES: Yes Cryotherapy (ice pack, ice massage): Yes Thermo therapy (hot pack): Yes Ultrasound (thermal/non thermal): Yes For the Purpose of:: To decrease pain, To increase ROM, To improve nutrient delivery to tissue, To increase oxygenation perfusion, To improve health of tissue, To decrease soft tissue restriction This patient was last seen in our office . Pertinent comments regarding their Physical therapy will appear below: Patient was seen for PT for LBP for HEP ,thus d/c At this point I will be discontinuing this patient from physical therapy. I would be happy to see this patient again in the future if found appropriate by the physician. Thank you! Dann Shell, PT, Cert MDT, OCS Balance/Gait/Functional tests - Balance/Special Test Scores Oswestry Low Back Score: 6
== END 2021-04-30 19:00 | disposition home or self-care (01) ==
LOC: PT 18:30
PROVIDERS: PCP Family Medicine; Referring Provider Family Medicine; Visit Provider Family Medicine
DX: M54.50 Low back pain, unspecified (principal)
CPT/HCPCS: 97014; 97110; 97162; G0283

== ENCOUNTER → 2022-03-04 | Outpatient (CLI) | payer BC, SELFPAY ==
[2022-03-04 11:07] LABS: Anion Gap 7 (5-15); BUN 18 mg/dL (7-18); BUN/Creat Ratio 12.4 RATIO (10-20); Calcium,Total 9.6 mg/dL (8.5-10.1); Chloride 108 mmol/L (98-107); Cholesterol 235 mg/dL (200); Creatinine, Serum 1.45 mg/dL (0.70-1.30); EST Glomerular Filtration Rate 52 mL/min (>60); Est Glom Filt Rate - Afr Amer 63 mL/min (>60); Glucose 98 mg/dL (74-106); High Density Lipoprotein 47 mg/dL; Potassium 4.1 mmol/L (3.5-5.1); Sodium Level 143 mmol/L (136-145); Triglycerides 147 mg/dL; Very Low Density Lipoprotein 29 mg/dL (5-40)
== END | disposition home or self-care (01) ==
LOC: MFPLAB 08:47
PROVIDERS: PCP Family Medicine; Visit Provider Family Medicine
DX: I10 Essential (primary) hypertension (principal)
CPT/HCPCS: 36415; 80048; 80061

== ENCOUNTER 2022-04-25 08:54 | Outpatient (CLI) | payer BC, SELFPAY ==
[2022-04-25 11:21] LABS: Microalbumin,Random Urine 7.6 mg/L (NO RANGE EST.); Microalbumin:Creatinine Ratio 5.1 mg/g CRE (<30 mg/g CRE)
[2022-04-25 11:26] LABS: ALB/GLOB Ratio 1.5 RATIO (0.9-2.4); AST(SGOT) 22 U/L (15-37); Alanine Aminotransfer ALT/SGPT 31 U/L (16-61); Albumin, Serum 4.1 g/dL (3.2-5.0); Alkaline Phosphatase 25 U/L (45-117); Anion Gap 9 (5-15); BUN 27 mg/dL (7-18); BUN/Creat Ratio 20.1 RATIO (10-20); Calcium,Total 9.2 mg/dL (8.5-10.1); Chloride 107 mmol/L (98-107); Cholesterol 180 mg/dL (200); Creatinine, Serum 1.34 mg/dL (0.70-1.30); EST Glomerular Filtration Rate 57 mL/min (>60); Est Glom Filt Rate - Afr Amer 69 mL/min (>60); Globulin 2.8 g/dL (2.2-4.2); Glucose 97 mg/dL (74-106); High Density Lipoprotein 51 mg/dL; Potassium 4.4 mmol/L (3.5-5.1); Protein, Total 6.9 g/dL (6.4-8.2); Sodium Level 143 mmol/L (136-145); Thyroid Stim Hormone (TSH) 4.64 uIU/mL (0.358-3.74); Triglycerides 76 mg/dL; Very Low Density Lipoprotein 15 mg/dL (5-40)
[2022-04-25 11:49] LABS: Vitamin D,25 Hydroxy 33.2 ng/mL
== END 2022-04-25 23:59 | disposition home or self-care (01) ==
LOC: MFPLAB 08:55
PROVIDERS: PCP Family Medicine; Referring Provider Family Medicine; Visit Provider Family Medicine
DX: I12.9 Hypertensive chronic kidney disease with stage 1 through stage 4 chronic kidney disease, or unspecified chronic kidney disease (principal); N18.32 Chronic kidney disease, stage 3b; E78.00 Pure hypercholesterolemia, unspecified; E03.9 Hypothyroidism, unspecified
CPT/HCPCS: 36415; 80053; 80061; 82043; 82306; 82570; 84443

== ENCOUNTER → 2022-09-05 | Outpatient (CLI) | payer MEDICARE, SELFPAY ==
[2022-09-05 09:02] LABS: Bacteria 0 SEEN /hpf (None Seen); Red Blood Cells-Urine 0 SEEN /hpf (0-5); White Blood Cells 0 SEEN /hpf (0-5)
[2022-09-05 10:12] LABS: Color, Urine Yellow (Yellow); Glucose, Dipstick Normal (Normal); Ketone-Dipstick Negative (Negative); Leukocyte Esterase-Dipstick Negative /ul (Negative); Nitrite-Dipstick Negative (Negative); Occult Blood-Urine Negative /ul (Negative); Protein-Dipstick Negative (Negative); Urine Bilirubin Dipstick Negative (Negative); Urine Clarity Clear (Clear); Urine Urobilinogen Normal (Normal)
[2022-09-05 10:19] LABS: Absolute Lymphocyte Count 1.02 X10^3/uL (0.83-4.51); Absolute Neutrophil Count 2.6 X10^3/uL (2.0-7.7); Basophil# 0.03 X10^3/uL; Basophil% 0.7 % (0-1); Eosinophil# 0.26 X10^3/uL; Hematocrit 40.1 % (40-54); Hemoglobin 12.8 g/dL (13.0-16.5); Lymphocyte # 1.02 X10^3/ul (0.83-4.51); Lymphocyte % 23.5 % (19-41); Mean Corp Hgb Conc 31.9 g/dL (32-36); Mean Corpuscular Hgb 31.1 pg (27.0-32.0); Mean Corpuscular Volume 97.6 fL (80-94); Mean Platelet Vol. 10.7 fl (6.2-12.0); Monocyte# 0.44 X10^3/uL; Monocyte% 10.1 % (0-10); Mucous, Urine 1+ /hpf (<or=2+); NRBC Flagged by Analyzer 0 % (0-5); Neutrophil # 2.58 X10^3/uL (2.7-7.7); Neutrophil % 59.5 % (47-70); Platelet Count 297 K/mm3 (150-450); RBC Distribution Width CV 12.2 % (11.6-14.6); Red Blood Count 4.11 M/mm3 (4.6-6.2); Squamous Epithelial Cells - UA 0-5 SEEN /hpf (0-5); White Blood Count 4.3 K/mm3 (4.4-11.0)
[2022-09-05 10:49] LABS: Hemoglobin A1c 5.3 % (3.8-5.6)
[2022-09-05 10:55] LABS: ALB/GLOB Ratio 1.3 RATIO (0.9-2.4); AST(SGOT) 24 U/L (15-37); Alanine Aminotransfer ALT/SGPT 26 U/L (16-61); Alkaline Phosphatase 25 U/L (45-117); Anion Gap 2 (5-15); BUN 18 mg/dL (7-18); BUN/Creat Ratio 15.1 RATIO (10-20); Calcium,Total 8.9 mg/dL (8.5-10.1); Chloride 107 mmol/L (98-107); Cholesterol 179 mg/dL (200); Creatinine, Serum 1.19 mg/dL (0.70-1.30); EST Glomerular Filtration Rate 65 mL/min (>60); Est Glom Filt Rate - Afr Amer 79 mL/min (>60); Globulin 3.1 g/dL (2.2-4.2); Glucose 96 mg/dL (74-106); High Density Lipoprotein 50 mg/dL; PSA,Total - Annual Screen 1.28 ng/mL (0.00-4.00); Potassium 3.8 mmol/L (3.5-5.1); Protein, Total 7.1 g/dL (6.4-8.2); Sodium Level 137 mmol/L (136-145); Triglycerides 70 mg/dL; Very Low Density Lipoprotein 14 mg/dL (5-40)
== END | disposition home or self-care (01) ==
PROVIDERS: PCP Family Medicine; Referring Provider Family Medicine; Visit Provider Family Medicine
DX: I12.9 Hypertensive chronic kidney disease with stage 1 through stage 4 chronic kidney disease, or unspecified chronic kidney disease (principal); N18.32 Chronic kidney disease, stage 3b; R35.0 Frequency of micturition; E78.00 Pure hypercholesterolemia, unspecified; Z12.5 Encounter for screening for malignant neoplasm of prostate
CPT/HCPCS: 36415; 80053; 80061; 81001; 83036; 84153; 85025; G0103

== ENCOUNTER → 2023-03-03 | Outpatient (CLI) | payer MEDICARE, SELFPAY ==
[2023-03-03 13:20] LABS: ALB/GLOB Ratio 1.1 RATIO (0.9-2.4); AST(SGOT) 31 U/L (15-37); Alanine Aminotransfer ALT/SGPT 39 U/L (16-61); Alkaline Phosphatase 30 U/L (45-117); Anion Gap 8 (5-15); BUN 14 mg/dL (7-18); Calcium,Total 9.1 mg/dL (8.5-10.1); Chloride 109 mmol/L (98-107); Creatinine, Serum 1.27 mg/dL (0.70-1.30); EST Glomerular Filtration Rate 60 mL/min (>60); Est Glom Filt Rate - Afr Amer 73 mL/min (>60); Globulin 3.6 g/dL (2.2-4.2); Glucose 96 mg/dL (74-106); Potassium 3.9 mmol/L (3.5-5.1); Protein, Total 7.6 g/dL (6.4-8.2); Sodium Level 144 mmol/L (136-145); T4 Free Direct 1.37 ng/dL (0.76-1.46); Thyroid Stim Hormone (TSH) 2.78 uIU/mL (0.358-3.74)
== END | disposition home or self-care (01) ==
LOC: MFPLAB 09:36
PROVIDERS: PCP Family Medicine; Visit Provider Family Medicine
DX: E03.9 Hypothyroidism, unspecified (principal); N18.32 Chronic kidney disease, stage 3b
CPT/HCPCS: 36415; 80053; 84439; 84443

== ENCOUNTER 2023-07-24 12:00 | Outpatient (RCR) | payer MEDICARE, SELFPAY ==
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
--- NOTE | 2023-07-24 12:29 | HP.PTDCSUM ---
Discharge Summary D/C summary: It has been my pleasure to treat FLORY ORTIZ referred by Dr. Mohindre Caldwell MD, with the diagnosis of RIGHT ROTATOR CUFF TENDONITIS for a total of 5 visit(s). Discharge Date: Please see the following information for a summary of their discharge status. Subjective Subjective: Ready for d/c ..doing good But unable to lift heavy Pain Right Shoulder: Pain Intensity (Out of 10): 0 Overall Improvement % Improvement: 90 Objective Objective/Function: POSTURE: rounded shoulders head forward NEURO: c/o fingers 1st/2nd ,forearm paresthesia/tingling ,reflexes C5-6-7 2/3 PALPATION: right [place] CERVICAL ROM: flexion min loss pain scapular, rotation/lateral flexion min loss extension min loss MMT: RTC 4/5 ,DELTOID 4-/5 AROM: shoulder flexion 155 degrees ,abduction 150 degrees ,ER 90 degrees ,IR L1 Goals Goal 1:: Patient to be I with HEP Goal 2:: Patient to demonstrate 50% improvement with less symptoms in arm left Goal 3:: Patient improve cervical ROM for function of recovery for job demands Goal 4:: Patient to improve neck oswestry by 5 points to improve QOL Plan Plan: D/C D/C Information d/c sentence: If there are questions or concerns regarding this patient's physical therapy, please feel free to call me at [phone]. Thank you for the referral of this patient. Sincerely, Dann Shell, PT, Cert MDT, OCS Balance/Gait/Functional tests Balance/Special Test Scores Oswestry Neck Score: 3 Improvement % Improvement: 90
== END 2023-07-24 19:00 | disposition home or self-care (01) ==
LOC: PT 12:00
PROVIDERS: PCP Family Medicine; Referring Provider Family Medicine; Visit Provider Family Medicine
DX: S46.011S Strain of muscle(s) and tendon(s) of the rotator cuff of right shoulder, sequela (principal)
CPT/HCPCS: 97110; 97162; 97530

== ENCOUNTER → 2023-08-05 | Outpatient (CLI) | payer MEDICARE, SELFPAY ==
[2023-08-05 16:10] LABS: ALB/GLOB Ratio 1.3 RATIO (0.9-2.4); AST(SGOT) 34 U/L (15-37); Alanine Aminotransfer ALT/SGPT 38 U/L (16-61); Albumin, Serum 4.3 g/dL (3.2-5.0); Alkaline Phosphatase 26 U/L (45-117); Anion Gap 4 (5-15); BUN 18 mg/dL (7-18); BUN/Creat Ratio 13.3 RATIO (10-20); Calcium,Total 9.2 mg/dL (8.5-10.1); Chloride 107 mmol/L (98-107); Creatinine, Serum 1.35 mg/dL (0.70-1.30); EST Glomerular Filtration Rate 56 mL/min (>60); Est Glom Filt Rate - Afr Amer 68 mL/min (>60); Globulin 3.2 g/dL (2.2-4.2); Glucose 103 mg/dL (74-106); Potassium 4.1 mmol/L (3.5-5.1); Protein, Total 7.5 g/dL (6.4-8.2); Sodium Level 140 mmol/L (136-145); Thyroid Stim Hormone (TSH) 2.22 uIU/mL (0.358-3.74)
== END | disposition home or self-care (01) ==
LOC: MFPLAB 09:44
PROVIDERS: PCP Family Medicine; Visit Provider Family Medicine
DX: E03.9 Hypothyroidism, unspecified (principal); N18.32 Chronic kidney disease, stage 3b
CPT/HCPCS: 36415; 80053; 84443

== ENCOUNTER → 2024-03-05 | Outpatient (CLI) | payer MEDICARE, SELFPAY ==
[2024-03-05 10:26] LABS: Absolute Neutrophil Count 3.8 X10^3/uL (2.0-7.7); Basophil# 0.03 X10^3/uL; Basophil% 0.6 % (0-1); Eosinophil# 0.21 X10^3/uL; Eosinophils% 3.9 % (0-5); Hematocrit 42.7 % (40-54); Hemoglobin 13.8 g/dL (13.0-16.5); Lymphocyte % 16.6 % (19-41); Mean Corp Hgb Conc 32.3 g/dL (32-36); Mean Corpuscular Hgb 31.2 pg (27.0-32.0); Mean Corpuscular Volume 96.4 fL (80-94); Mean Platelet Vol. 10.8 fl (6.2-12.0); Monocyte# 0.44 X10^3/uL; Monocyte% 8.1 % (0-10); NRBC Flagged by Analyzer 0 % (0-5); Neutrophil # 3.82 X10^3/uL (2.7-7.7); Neutrophil % 70.4 % (47-70); Platelet Count 285 K/mm3 (150-450); RBC Distribution Width CV 12.3 % (11.6-14.6); RBC Distribution Width SD 43.8 fl (35.1-43.9); Red Blood Count 4.43 M/mm3 (4.6-6.2); White Blood Count 5.4 K/mm3 (4.4-11.0)
[2024-03-05 11:05] LABS: ALB/GLOB Ratio 1.3 RATIO (0.9-2.4); AST(SGOT) 25 U/L (15-37); Alanine Aminotransfer ALT/SGPT 32 U/L (16-61); Albumin, Serum 4.4 g/dL (3.2-5.0); Alkaline Phosphatase 28 U/L (45-117); Anion Gap 3 (5-15); BUN 13 mg/dL (7-18); BUN/Creat Ratio 10.1 RATIO (10-20); Calcium,Total 9.7 mg/dL (8.5-10.1); Chloride 109 mmol/L (98-107); Creatinine, Serum 1.29 mg/dL (0.70-1.30); EST Glomerular Filtration Rate 59 mL/min (>60); Est Glom Filt Rate - Afr Amer 72 mL/min (>60); Globulin 3.3 g/dL (2.2-4.2); Glucose 102 mg/dL (74-106); Potassium 4.2 mmol/L (3.5-5.1); Protein, Total 7.7 g/dL (6.4-8.2); Sodium Level 142 mmol/L (136-145)
== END | disposition home or self-care (01) ==
LOC: MTLAB 09:35
PROVIDERS: PCP Family Medicine; Referring Provider Family Medicine; Visit Provider Family Medicine
DX: E11.22 Type 2 diabetes mellitus with diabetic chronic kidney disease (principal)
CPT/HCPCS: 36415; 80053; 85025

== ENCOUNTER → 2024-08-26 | Outpatient (CLI) | payer MEDICARE, SELFPAY ==
[2024-08-26 10:50] LABS: Absolute Lymphocyte Count 1.03 X10^3/uL (0.83-4.51); Absolute Neutrophil Count 2.7 X10^3/uL (2.0-7.7); Basophil# 0.03 X10^3/uL; Basophil% 0.7 % (0-1); Eosinophil# 0.22 X10^3/uL; Eosinophils% 4.9 % (0-5); Hematocrit 40.1 % (40-54); Hemoglobin 13.1 g/dL (13.0-16.5); Lymphocyte # 1.03 X10^3/ul (0.83-4.51); Lymphocyte % 23.1 % (19-41); Mean Corp Hgb Conc 32.7 g/dL (32-36); Mean Corpuscular Hgb 31.1 pg (27.0-32.0); Mean Corpuscular Volume 95.2 fL (80-94); Mean Platelet Vol. 11.1 fl (6.2-12.0); Monocyte# 0.43 X10^3/uL; Monocyte% 9.7 % (0-10); NRBC Flagged by Analyzer 0 % (0-5); Neutrophil # 2.73 X10^3/uL (2.7-7.7); Neutrophil % 61.4 % (47-70); Platelet Count 274 K/mm3 (150-450); RBC Distribution Width CV 12.3 % (11.6-14.6); RBC Distribution Width SD 43.1 fl (35.1-43.9); Red Blood Count 4.21 M/mm3 (4.6-6.2); White Blood Count 4.5 K/mm3 (4.4-11.0)
[2024-08-26 11:45] LABS: ALB/GLOB Ratio 1.7 RATIO (0.9-2.4); AST(SGOT) 27 U/L (<=37); Alanine Aminotransfer ALT/SGPT 21 U/L (<=46); Albumin, Serum 4.4 g/dL (3.4-4.8); Alkaline Phosphatase 29 U/L (40-129); Anion Gap 11 (5-15); BUN 16 mg/dL (4-19); Calcium,Total 9.6 mg/dL (7.6-11.0); Carbon Dioxide 24.4 mmol/L (21.0-32.0); Chloride 108 mmol/L (98-108); Creatinine, Serum 1.34 mg/dL (0.70-1.20); EST Glomerular Filtration Rate 58 (>60); Globulin 2.6 g/dL (2.2-4.2); Glucose 97 mg/dL (70-99); Potassium 4.4 mmol/L (3.3-5.1); Sodium Level 143 mmol/L (133-145); Total Bilirubin 0.42 mg/dL (0.00-1.30)
[2024-08-26 15:08] LABS: Microalbumin,Random Urine 22.3 mg/L (NO RANGE EST.); Microalbumin:Creatinine Ratio 81.1 mg/g CRE
== END | disposition home or self-care (01) ==
LOC: MFPLAB 08:47
PROVIDERS: PCP Family Medicine; Referring Provider Family Medicine; Visit Provider Family Medicine
DX: E11.22 Type 2 diabetes mellitus with diabetic chronic kidney disease (principal); I12.9 Hypertensive chronic kidney disease with stage 1 through stage 4 chronic kidney disease, or unspecified chronic kidney disease; N18.9 Chronic kidney disease, unspecified
CPT/HCPCS: 36415; 80053; 82043; 82570; 85025

== ENCOUNTER → 2025-03-29 | Outpatient (CLI) | payer MEDICARE, SELFPAY ==
--- NOTE | 2025-03-29 10:12 | RAD_ITS ---
EXAM: XR Left Ribs and AP Chest, 3 or More Views CLINICAL INDICATION: L ANTERIOR CHEST SWELLING ALONG T9-10 COSTOCHONDRAL JUNCTION, 5CM TECHNIQUE: Frontal and oblique views of the left ribs and frontal view of the chest. COMPARISON: No relevant prior studies available. FINDINGS: LUNGS AND PLEURAL SPACES: Unremarkable. No consolidation. No pneumothorax. HEART: Unremarkable. No cardiomegaly. MEDIASTINUM: Unremarkable. Normal mediastinal contour. BONES/JOINTS: Unremarkable. No displaced rib fractures. RAD/Ribs Unil 2V No CXR IMPRESSION: No displaced rib fractures. Reading [facility]
== END | disposition home or self-care (01) ==
LOC: MTRAD 10:12
PROVIDERS: PCP Family Medicine; Referring Provider Family Medicine; Visit Provider Family Medicine
DX: R22.2 Localized swelling, mass and lump, trunk (principal)
CPT/HCPCS: 71100

== ENCOUNTER → 2025-05-23 | Outpatient (CLI) | payer MEDICARE, SELFPAY ==
--- OUTSIDE RECORDS SUMMARY | 2025-05-23 11:03 | XMS RPT_ITS | CCD ---
Author Organization [facility] Care Team Providers Care Soft Water Mechanic Name Role Phone Javi ESTRELLA, Dr. Vines Primary Care Provider Javi ESTRELLA, Dr. Vines Attending Provider Dr. Mohinder Caldwell MD Referring Provider Mohinder Caldwell Referring Unavailable Mohinder Caldwell Attending Unavailable Mohinder Caldwell Primary Care Unavailable Mohinder Caldwell Referring Unavailable Mohinder Caldwell Attending Unavailable Mohinder Caldwell Primary Care Unavailable Medications Current Medications Medication Drug Class(es) Dates Sig (Normalized) Sig (Original) aspirin 81 mg chewable tablet (6 sources) Platelet Aggregation Inhibitor, Nonsteroidal Anti-inflammatory Drug Start: 03-14-2019 take 1 tablet by mouth once daily Aspirin 81 MG tablet,chewable Active 81 mg PO DAILY@0800 March 14, 2019 12:00am cholecalciferol 0.025 mg oral capsule (6 sources) Vitamin D Start: 04-07-2019 take 1 capsule by mouth once daily Cholecalciferol (Vitamin D3) 1,000 UNIT capsule Active 1000 U PO DAILY April 07, 2019 1:00am fenofibrate 160 mg oral tablet (6 sources) Peroxisome Proliferator Receptor alpha Agonist Start: 03-14-2019 take 1 tablet by mouth once daily Fenofibrate 160 MG tablet Active 160 mg PO DAILY March 14, 2019 12:00am levothyroxine sodium 0.1 mg oral tablet (6 sources) l-Thyroxine Start: 03-14-2019 Levothyroxine 100 MCG tablet Active 125 ug PO DAILY March 14, 2019 12:00am Start: 03-14-2019 take 125 ug by mouth once daily Levothyroxine Active 125 MCG PO DAILY March 14, 2019 12:00am 24 hr metFORMIN hydrochloride 500 mg extended release oral tablet (6 sources) Biguanide Start: 03-14-2019 take 1 tablet by mouth once daily Metformin 500 MG tablet extended release 24 hr Active 500 mg PO DAILY March 14, 2019 12:00am Multivitamin With Minerals (5 sources) Start: 04-07-2019 Multivitamin W ith Minerals Active 1 EACH PO DAILY April 07, 2019 1:00am Start: 04-07-2019 Multivitamin W ith Minerals Active 1 EACH PO DAILY April 07, 2019 12:00am Multivitamin With Minerals 1 EACH tablet (1 source) Start: 04-07-2019 take 1 tablet by mouth once daily Multivitamin With Minerals 1 EACH tablet Active 1 NMA PO DAILY April 07, 2019 1:00am Completed/Discontinued Medications Medication Drug Class(es) Dates Sig (Normalized) Sig (Original) acetaminophen 325 mg / oxyCODONE hydrochloride 5 mg oral tablet (6 sources) Opioid Agonist Start: 04-14-2019 End: 04-22-2019 Oxycodone-Acetamino phen 1 TABLET tablet Discontinued 1 {tbl} PO EVERY 4 HOURS NEEDED as needed for Pain 12 April 14, 2019 April 18, 2019 1:00am April 22, 2019 1:08am Start: 04-14-2019 End: 04-22-2019 take 1 tablet by mouth every four hours as needed Oxycodone-Acetaminophen Discontinued 1 TABLET PO EVERY 4 HOURS NEEDED 12 April 14, 2019 April 22, 2019 1:08am Problems Problem Classification Problem Date Documented Da te Episodic/Chronic Diabetes mellitus with complications (1 source) Type 2 diabetes mellitus with diabetic chronic kidney disease; Translations: [Type 2 diabetes mellitus with diabetic chronic kidney disease] Onset: 08-31-2024 Chronic Other skin disorders (1 source) Localized swelling, mass and lump, trunk; Translations: [Localized swelling, mass and lump, trunk] Onset: 03-29-2025 Episodic Results Test Name Value Interpretation Reference Range Facility Ribs Unil 2V No CXRon 2024 Ribs Unil 2V No CXR [facility] Services [address] [place] [address] Ribs Unil 2V No CXR MR#: [id number] Acct: [id number] Name: FLORY GOMEZ Rep #: [id number] : 1955 M 69 From: Henrik Jacob MD PCP: Dr. Mohinder Caldwell MD Status: REG CLI Study: Ribs Unil 2V No CXR Date of Exam: 03/29/25 Exam# [id number] Ordering Dr: Mohinder Caldwell MD EXAM: XR Left Ribs and AP Chest, 3 or More Views CLINICAL INDICATION: L ANTERIOR CHEST SWELLING ALONG T9-10 COSTOCHONDRAL JUNCTION, 5CM TECHNIQUE: Frontal and oblique views of the left ribs and frontal view of the chest. COMPARISON: No relevant prior studies available. FINDINGS: LUNGS AND PLEURAL SPACES: Unremarkable. No consolidation. No pneumothorax. HEART: Unremarkable. No cardiomegaly. MEDIASTINUM: Unremarkable. Normal mediastinal contour. BONES/JOINTS: Unremarkable. No displaced rib fractures. RAD/Ribs Unil 2V No CXR IMPRESSION: No displaced rib fractures. Reading Location: [facility] CC: Dr. Mohinder Caldwell MD Matrix Bath Attendant: Signed Normal [facility] Microalb:Creat Ratio,Random URon 11-11-2024 MALB:CREAT 8.1 mg/g CRE Normal [facility] Comment on above: Result Comment: AMENDED REPORT 11/11/24825 MALB:CREAT previously reported as: 81.1 mg/g CRE Performed By: #### L 502.0250 #### [facility] [address] [place] [address]. [place], [address] Absolute neutrophil countOrd ered By: Mohinder Caldwell on 08-26-2024 Neutrophils (Bld) [#/Vol] 2.7 10*3/uL 2.0-7.7 [facility] Albumin DL <= 20 mg/L (U) [M ass/Vol]Ordered By: Mohinder Caldwell on 08-26-2024 Urine Random Microalbumin 22.3 mg/L NO RANGE EST. [facility] Anion gap in Serum or Plasma Ordered By: Mohinder Caldwell on 08-26-2024 Anion gap [Moles/Vol] 11 mmol/L 5-15 [facility] BUN/creatinine ratioOrdered By: Mohinder Caldwell on 08-26-2024 Urea nitrogen/Creatinine [Mass ratio] 12.0 mg/mg 10-20 [facility] Basophil percentageOrdered B y: Mohinder Caldwell on 08-26-2024 Basophils/100 WBC (Bld) 0.7 % 0-1 [facility] Bilirubin, totalOrdered By: Mohinder Caldwell on 08-26-2024 Bilirubin [Mass/Vol] 0.42 mg/dL 0.00-1.30 [facility] CBC W/Diff, Automatedon Absolute Lymph 1.03 X10 3/uL Normal 0.83-4.51 [facility] Comment on above: Order Comment: Order Date: 08/26/24 Order Info: 0184-1 - CBCD Performed By: #### L 100.0100, L500.4050 #### [facility] [address] [place], [address] Absolute Neut 2.7 X10 3/uL Normal 2.0-7.7 [facility] Comment on above: Order Comment: Order Date: 08/26/24 Order Info: 0184-1 - CBCD Performed By: #### L 100.0100, L500.4050 #### [facility] [address] [place], [address] Basophils/100 WBC (Bld) 0.7 % Normal 0-1 [facility] Comment on above: Order Comment: Order Date: 08/26/24 Order Info: 0184-1 - CBCD Performed By: #### L 100.0100, L500.4050 #### [facility] [address] [place], [address] Eosinophils/100 WBC (Bld) 4.9 % Normal 0-5 [facility] Comment on above: Order Comment: Order Date: 08/26/24 Order Info: 0184-1 - CBCD Performed By: #### L 100.0100, L500.4050 #### [facility] [address] [place], [address] Erythrocyte distribution width (RBC) [Ratio] 12.3 % Normal 11.6-14.6 [facility] Comment on above: Order Comment: Order Date: 08/26/24 Order Info: 0184-1 - CBCD Performed By: #### L 100.0100, L500.4050 #### [facility] [address], [address] Hematocrit (Bld) [Volume fraction] 40.1 % Normal 40-54 [facility] Comment on above: Order Comment: Order Date: 08/26/24 Order Info: 0184-1 - CBCD Performed By: #### L 100.0100, L500.4050 #### [facility] [address] [place], [address] Hemoglobin (Bld) [Mass/Vol] 13.1 g/dL Normal 13.0-16.5 [facility] Comment on above: Order Comment: Order Date: 08/26/24 Order Info: 0184- - CBCD Performed By: #### L 100.0100, L500.4050 #### [facility] [address] [place], [address] IG% 0.200 Normal 0.0-0.9 [facility] Comment on above: Order Comment: Order Date: 08/26/24 Order Info: 0184-1 - CBCD Result Comment: IG% - Immature Granulocytes (promyelocytes, myelocytes and metamyelocytes) > 1% indicates that a LEFT SHIFT is Present. Performed By: #### L 100.0100, L500.4050 #### [facility] [address] [place], [address] Lymphocytes/100 WBC (Bld) 23.1 % Normal 19-41 [facility] Comment on above: Order Comment: Order Date: 08/26/24 Order Info: 0184-1 - CBCD Performed By: #### L 100.0100, L500.4050 #### [facility] [address] [place], [address] MCH (RBC) [Entitic mass] 31.1 pg Normal 27.0-32.0 [facility] Comment on above: Order Comment: Order Date: 08/26/24 Order Info: 0184-1 - CBCD Performed By: #### L 100.0100, L500.4050 #### [facility] [address] [place], [address] MCHC (RBC) [Mass/Vol] 32.7 g/dL Normal 32-36 [facility] Comment on above: Order Comment: Order Date: 08/26/24 Order Info: 0184-1 - CBCD Performed By: #### L 100.0100, L500.4050 #### [facility] [address] [place], [address] MCV (RBC) [Entitic vol] 95.2 fL High 80-94 [facility] Comment on above: Order Comment: Order Date: 08/26/24 Order Info: 0184-1 - CBCD Performed By: #### L 100.0100, L500.4050 #### [facility] [address] [place], [address] Monocytes/100 WBC (Bld) 9.7 % Normal 0-10 [facility] Comment on above: Order Comment: Order Date: 08/26/24 Order Info: 0184-1 - CBCD Performed By: #### L 100.0100, L500.4050 #### [facility] [address] [place], [address] Neutrophils/100 WBC (Bld) 61.4 % Normal 47-70 [facility] Comment on above: Order Comment: Order Date: 08/26/24 Order Info: 0184-1 - CBCD Performed By: #### L 100.0100, L500.4050 #### [facility] [address] [place], [address] Nucleated RBC (Bld) [#/Vol] 0 10*3/uL Normal 0-5 [facility] Comment on above: Order Comment: Order Date: 08/26/24 Order Info: 0184-1 - CBCD Performed By: #### L 100.0100, L500.4050 #### [facility] [address] [place], [address] Platelet mean volume (Bld) [Entitic vol] 11.1 fL Normal 6.2-12.0 [facility] Comment on above: Order Comment: Order Date: 08/26/24 Order Info: 0184-1 - CBCD Performed By: #### L 100.0100, L500.4050 #### [facility] [address] [place], [address] Platelets (Bld) [#/Vol] 274 10*3/uL Normal 150-450 [facility] Comment on above: Order Comment: Order Date: 08/26/24 Order Info: 0184- - CBCD Performed By: #### L 100.0100, L500.4050 #### [facility] [address] [place], [address] RBC (Bld) [#/Vol] 4.21 10*6/uL Low 4.6-6.2 [facility] Comment on above: Order Comment: Order Date: 08/26/24 Order Info: 0184-1 - CBCD Performed By: #### L 100.0100, L500.4050 #### [facility] [address] [place], [address] RDW SD 43.1 fl Normal 35.1-43.9 [facility] Comment on above: Order Comment: Order Date: 08/26/24 Order Info: 0184-1 - CBCD Performed By: #### L 100.0100, L500.4050 #### [facility] [address] [place], [address] WBC (Bld) [#/Vol] 4.5 10*3/uL Normal 4.4-11.0 [facility] Comment on above: Order Comment: Order Date: 08/26/24 Order Info: 0184-1 - CBCD Performed By: #### L 100.0100, L500.4050 #### [facility] [address] [place], [address] Carbon dioxide, total [Moles /volume] in Central venous bloodOrdered By: Mohinder Caldwell on 08-26-2024 CO2 [Moles/Vol] 24.4 mmol/L 21.0-32.0 [facility] Chloride assayOrdered By: Amado Caldwell on 08-26-2024 Chloride [Moles/Vol] 108 mmol/L 98-108 [facility] Comprehensive Metabolic Prof ilon 08-26-2024 Albumin [Mass/Vol] 4.4 g/dL Normal 3.4-4.8 [facility] Comment on above: Order Comment: Order Date: 08/26/24 Order Info: 0786-1 - CMP Performed By: #### L 100.0100, L500.4050 #### [facility] [address] [place], [address] Albumin/Globulin [Mass ratio] 1.7 {ratio} Normal 0.9-2.4 [facility] Comment on above: Order Comment: Order Date: 08/26/24 Order Info: 0786-1 - CMP Performed By: #### L 100.0100, L500.4050 #### [facility] [address] [place], [address] ALK PHOS 29 U/L Low 40-129 [facility] Comment on above: Order Comment: Order Date: 08/26/24 Order Info: 0786-1 - CMP Performed By: #### L 100.0100, L500.4050 #### [facility] [address] [place], [address] ALT [Catalytic activity/Vol] 21 U/L Normal <=46 [facility] Comment on above: Order Comment: Order Date: 08/26/24 Order Info: 0786-1 - CMP Performed By: #### L 100.0100, L500.4050 #### [facility] [address] [place], [address] AST [Catalytic activity/Vol] 27 U/L Normal <=37 [facility] Comment on above: Order Comment: Order Date: 08/26/24 Order Info: 0786-1 - CMP Performed By: #### L 100.0100, L500.4050 #### [facility] [address] [place], [address] Bilirubin [Mass/Vol] 0.42 mg/dL Normal 0.00-1.30 [facility] Comment on above: Order Comment: Order Date: 08/26/24 Order Info: 0786-1 - CMP Performed By: #### L 100.0100, L500.4050 #### [facility] [address] [place], [address] BUN/CRE 12.0 RATIO Normal 10-20 [facility] Comment on above: Order Comment: Order Date: 08/26/24 Order Info: 0786-1 - CMP Performed By: #### L 100.0100, L500.4050 #### [facility] [address] [place], [address] Calcium [Mass/Vol] 9.6 mg/dL Normal 7.6-11.0 [facility] Comment on above: Order Comment: Order Date: 08/26/24 Order Info: 0786-1 - CMP Performed By: #### L 100.0100, L500.4050 #### [facility] [address] [place], [address] Chloride [Moles/Vol] 108 mmol/L Normal 98-108 [facility] Comment on above: Order Comment: Order Date: 08/26/24 Order Info: 0786-1 - CMP Performed By: #### L 100.0100, L500.4050 #### [facility] [address] [place], [address] CO2 [Moles/Vol] 24.4 mmol/L Normal 21.0-32.0 [facility] Comment on above: Order Comment: Order Date: 08/26/24 Order Info: 0786-1 - CMP Performed By: #### L 100.0100, L500.4050 #### [facility] [address] [place], [address] Creatinine [Mass/Vol] 1.34 mg/dL High 0.70-1.20 [facility] Comment on above: Order Comment: Order Date: 08/26/24 Order Info: 0786-1 - CMP Performed By: #### L 100.0100, L500.4050 #### [facility] [address] [place], [address] GAP 11 Normal 5-15 [facility] Comment on above: Order Comment: Order Date: 08/26/24 Order Info: 0786-1 - CMP Performed By: #### L 100.0100, L500.4050 #### [facility] [address] [place], [address] GFR/1.73 sq M.predicted among non-blacks MDRD (S/P/Bld) [Vol rate/Area] 58 mL/min/{1.73_m2} Low >60 [facility] Comment on above: Order Comment: Order Date: 08/26/24 Order Info: 0786-1 - CMP Result Comment: mL/m in/1.73m2 CKD-EPI Creatinine Equation (2020) Performed By: #### L 100.0100, L500.4050 #### [facility] [address] [place], [address] Globulin (S) [Mass/Vol] 2.6 g/dL Normal 2.2-4.2 [facility] Comment on above: Order Comment: Order Date: 08/26/24 Order Info: 0786-1 - CMP Performed By: #### L 100.0100, L500.4050 #### [facility] [address] [place], [address] Glucose [Mass/Vol] 97 mg/dL Normal 70-99 [facility] Comment on above: Order Comment: Order Date: 08/26/24 Order Info: 0786-1 - CMP Performed By: #### L 100.0100, L500.4050 #### [facility] [address] [place], [address] Potassium [Moles/Vol] 4.4 mmol/L Normal 3.3-5.1 [facility] Comment on above: Order Comment: Order Date: 08/26/24 Order Info: 0786-1 - CMP Performed By: #### L 100.0100, L500.4050 #### [facility] [address] [place], [address] Sodium [Moles/Vol] 143 mmol/L Normal 133-145 [facility] Comment on above: Order Comment: Order Date: 08/26/24 Order Info: 0786-1 - CMP Performed By: #### L 100.0100, L500.4050 #### [facility] [address] [place], [address] T PROT 7.0 g/dL Normal 5.9-8.4 [facility] Comment on above: Order Comment: Order Date: 08/26/24 Order Info: 0786-1 - CMP Performed By: #### L 100.0100, L500.4050 #### [facility] [address] [place], [address] Urea nitrogen [Mass/Vol] 16 mg/dL Normal 4-19 [facility] Comment on above: Order Comment: Order Date: 08/26/24 Order Info: 0786-1 - CMP Performed By: #### L 100.0100, L500.4050 #### [facility] [address] [place], [address] Creatinine Unsp time (U) [Ma ss/Vol]Ordered By: Mohinder Caldwell on 08-26-2024 Creatinine (U) [Mass/Vol] 275.00 mg/dL High 39.00-259.00 [facility] Eosinophil percentageOrdered By: Mohinder Caldwell on 08-26-2024 Eosinophils/100 WBC (Bld) 4.9 % 0-5 [facility] Erythrocyte distribution wid th (RBC) [Ratio]Ordered By: Mohinder Caldwell on 08-26-2024 Erythrocyte distribution width (RBC) [Entitic vol] 43.1 fL 35.1-43.9 [facility] Erythrocyte distribution wid th ratioOrdered By: Mohinder Caldwell on 08-26-2024 Erythrocyte distribution width (RBC) [Ratio] 12.3 % 11.6-14.6 [facility] GFR/1.73 sq M.predicted libertad g non-blacks MDRD (S/P/Bld) [Vol rate/Area]Ordered By: Mohinder Caldwell on 08-26-2024 Estimated GFR (MDRD) Non-Af Amer 58 Low >60 [facility] Comment on above: mL/min/1.73m2 CKD-EP I Creatinine Equation (2020) Hematocrit Auto (Bld) [Volum e fraction]Ordered By: Mohinder Caldwell on 08-26-2024 Hematocrit (Bld) [Volume fraction] 40.1 % 40-54 [facility] Hemoglobin measurementOrdere d By: Mohinder Caldwell on 08-26-2024 Hemoglobin (Bld) [Mass/Vol] 13.1 g/dL 13.0-16.5 [facility] Immature granulocytes/100 WB C Auto (Bld)Ordered By: Mohinder Caldwell on 08-26-2024 Immature granulocytes/100 WBC (Bld) 0.200 % 0.0-0.9 [facility] Comment on above: IG% - Immature Granu locytes (promyelocytes, myelocytes and metamyelocytes) > 1% indicates that a LEFT SHIFT is Present. Laboratory - Chemistry and C hemistry - challengeOrdered By: Mohinder Caldwell on 08-26-2024 AST [Catalytic activity/Vol] 27 U/L <38 [facility] Lymphocytes Auto (Unsp spec) [#/Vol]Ordered By: Mohinder Caldwell on 08-26-2024 Lymphocytes (Bld) [#/Vol] 1.03 10*3/uL 0.83-4.51 [facility] Lymphocytes/100 WBC Auto (Un sp spec)Ordered By: Mohinder Caldwell on 08-26-2024 Lymphocytes/100 WBC (Bld) 23.1 % 19-41 [facility] MCV (mean corpuscular volume ) determinationOrdered By: Mohinder Caldwell on 08-26-2024 MCV (RBC) [Entitic vol] 95.2 fL High 80-94 [facility] Mean corpuscular hemoglobin (MCH) determinationOrdered By: Mohinder Caldwell on 08-26-2024 MCH (RBC) [Entitic mass] 31.1 pg 27.0-32.0 [facility] Mean corpuscular hemoglobin concentration (MCHC) determinationOrdered By: Mohinder Caldwell on 08-26-2024 MCHC (RBC) [Mass/Vol] 32.7 g/dL 32-36 [facility] Mean platelet volume determi nationOrdered By: Mohinder Caldwell on 08-26-2024 Platelet mean volume (Bld) [Entitic vol] 11.1 fL 6.2-12.0 [facility] Microalbumin/creat ratio urO rdered By: Mohinder Caldwell on 08-26-2024 Urine Microalbumin/Creatinine Ratio 81.1 mg/g CRE [facility] Monocyte percentageOrdered B y: Mohinder Caldwell on 08-26-2024 Monocytes/100 WBC (Bld) 9.7 % 0-10 [facility] Neutrophil percentageOrdered By: Mohinder Caldwell on 08-26-2024 Neutrophils/100 WBC (Bld) 61.4 % 47-70 [facility] Nucleated red blood cell per centageOrdered By: Mohinder Caldwell on 08-26-2024 Nucleated RBC/100 WBC (Bld) [Ratio] 0 % 0-5 [facility] Platelet countOrdered By: Amado Caldwell on 08-26-2024 Platelets (Bld) [#/Vol] 274 10*3/uL 150-450 [facility] Potassium (Unsp spec) [Mass/ Vol]Ordered By: Mohinder Caldwell on 08-26-2024 Potassium [Moles/Vol] 4.4 mmol/L 3.3-5.1 [facility] RBC Auto (Bld) [#/Vol]Ordere d By: Mohinder Caldwell on 08-26-2024 RBC (Bld) [#/Vol] 4.21 10*6/uL Low 4.6-6.2 [facility] Serum creatinine measurement (mass/volume)Ordered By: Mohinder Caldwell on 08-26-2024 Creatinine [Mass/Vol] 1.34 mg/dL High 0.70-1.20 [facility] Serum globulin measurementOr dered By: Mohinder Caldwell on 08-26-2024 Globulin (S) [Mass/Vol] 2.6 g/dL 2.2-4.2 [facility] Serum glucose measurement (m ass/volume)Ordered By: Mohinder Caldwell on 08-26-2024 Glucose [Mass/Vol] 97 mg/dL 70-99 [facility] Serum or plasma alanine chan otransferase (ALT) measurementOrdered By: Mohinder Caldwell on 08-26-2024 ALT [Catalytic activity/Vol] 21 U/L <47 [facility] Serum or plasma albumin jennifer urement (mass/volume)Ordered By: Mohinder Caldwell on 08-26-2024 Albumin [Mass/Vol] 4.4 g/dL 3.4-4.8 [facility] Serum or plasma albumin/glob ulin mass ratioOrdered By: Mohinder Caldwell on 08-26-2024 Albumin/Globulin [Mass ratio] 1.7 {ratio} 0.9-2.4 [facility] Serum or plasma alkaline sparkle sphatase measurementOrdered By: Mohinder Caldwell on 08-26-2024 ALP [Catalytic activity/Vol] 29 U/L Low 40-129 [facility] Serum or plasma calcium jennifer urement (mass/volume)Ordered By: Mohinder Caldwell on 08-26-2024 Calcium [Mass/Vol] 9.6 mg/dL 7.6-11.0 [facility] Serum or plasma urea nitroge n measurement (mass/volume)Ordered By: Mohinder Caldwell on 08-26-2024 Urea nitrogen [Mass/Vol] 16 mg/dL 4-19 [facility] Sodium levelOrdered By: Mohinder Caldwell on 08-26-2024 Sodium [Moles/Vol] 143 mmol/L 133-145 [facility] Total proteinOrdered By: Savannah Caldwell on 08-26-2024 Protein [Mass/Vol] 7.0 g/dL 5.9-8.4 [facility] White blood cell (WBC) count Ordered By: Mohinder Caldwell on 08-26-2024 WBC (Bld) [#/Vol] 4.5 10*3/uL 4.4-11.0 [facility] Basophil percentageOrdered B y: Mohinder Calwdell on 08-05-2023 Bilirubin [Mass/Vol] 0.60 mg/dL 0.20-1.00 [facility] Comment on above: For patients on eltr ombopag therapy, use of Dimension [place] TBIL is not recommended. Chloride [Moles/Vol] 107 mmol/L 98-107 [facility] Glucose [Mass/Vol] 103 mg/dL 74-106 [facility] Comment on above: Fasting Glucose resu lt from 100 to 125 mg/dL suggests IMPAIRED HOMEOSTASIS per A.D.A. criteria. Potassium [Moles/Vol] 4.1 mmol/L 3.5-5.1 [facility] Protein [Mass/Vol] 7.5 g/dL 6.4-8.2 [facility] Sodium [Moles/Vol] 140 mmol/L 136-145 [facility] Laboratory - Chemistry and C hemistry - challengeOrdered By: Mohinder Caldwell on 08-05-2023 Albumin/Globulin [Mass ratio] 1.3 {ratio} 0.9-2.4 [facility] ALP [Catalytic activity/Vol] 26 U/L 45-117 [facility] ALT [Catalytic activity/Vol] 38 U/L 16-61 [facility] CO2 [Moles/Vol] 29.0 mmol/L 21.0-32.0 [facility] Globulin (S) [Mass/Vol] 3.2 g/dL 2.2-4.2 [facility] Urea nitrogen/Creatinine [Mass ratio] 13.3 mg/mg 10-20 [facility] No Panel InformationOrdered By: Mohinder Caldwell on 08-05-2023 Estimated GFR (MDRD) Amer 68 mL/min >60 [facility] Comment on above: GFR Calc Estimated GFR (MDRD) Non-Af Amer 56 mL/min >60 [facility] Comment on above: Non- GFR Calc Serum or plasma calcium jennifer urement (mass/volume)Ordered By: Mohinder Caldwell on 08-05-2023 Calcium [Mass/Vol] 9.2 mg/dL 8.5-10.1 [facility] Serum or plasma creatinine m easurement (mass/volume)Ordered By: Mohinder Caldwell on 08-05-2023 Creatinine [Mass/Vol] 1.35 mg/dL 0.70-1.30 [facility] Comment on above: The validity of the calculated GFR & GFRAA in patients over 70 years has not been determined. Clinical correlation is essential. Serum or plasma thyroid stim ulating hormone (TSH) measurement (units/volume)Ordered By: Mohinder Caldwell on 08-05-2023 TSH Qn 2.22 uIU/mL 0.358-3.74 [facility] Serum or plasma urea nitroge n measurement (mass/volume)Ordered By: Mohinder Caldwell on 08-05-2023 Urea nitrogen [Mass/Vol] 18 mg/dL 7-18 [facility] Thin prep Papanicolaou smear with manual screeningOrdered By: Mohinder Caldwell on 08-05-2023 Thin prep Papanicolaou smear with manual screening 4.3 g/dL 3.2-5.0 [facility] Thin prep Papanicolaou smear with manual screening 34 U/L 15-37 [facility] Thin prep Papanicolaou smear with manual screening 4 5-15 [facility] Basophil percentageOrdered B y: Mohinder Caldwell on 03-03-2023 Bilirubin [Mass/Vol] 0.40 mg/dL 0.20-1.00 [facility] Comment on above: For patients on eltr ombopag therapy, use of Dimension [place] TBIL is not recommended. Chloride [Moles/Vol] 109 mmol/L 98-107 [facility] Glucose [Mass/Vol] 96 mg/dL 74-106 [facility] Potassium [Moles/Vol] 3.9 mmol/L 3.5-5.1 [facility] Protein [Mass/Vol] 7.6 g/dL 6.4-8.2 [facility] Sodium [Moles/Vol] 144 mmol/L 136-145 [facility] Laboratory - Chemistry and C hemistry - challengeOrdered By: Mohinder Caldwell on 03-03-2023 ALP [Catalytic activity/Vol] 30 U/L 45-117 [facility] ALT [Catalytic activity/Vol] 39 U/L 16-61 [facility] CO2 [Moles/Vol] 27.0 mmol/L 21.0-32.0 [facility] Free T4 [Mass/Vol] 1.37 ng/dL 0.76-1.46 [facility] Globulin (S) [Mass/Vol] 3.6 g/dL 2.2-4.2 [facility] Urea nitrogen/Creatinine [Mass ratio] 11.0 mg/mg 10-20 [facility] No Panel InformationOrdered By: Mohinder Caldwell on 03-03-2023 Estimated GFR (MDRD) Amer 73 mL/min >60 [facility] Comment on above: GFR Calc Estimated GFR (MDRD) Non-Af Amer 60 mL/min >60 [facility] Comment on above: Non- GFR Calc Thyroid Stimulating Hormone (TSH) 2.78 uIU/mL 0.358-3.74 [facility] Serum or plasma albumin jennifer urement (mass/volume)Ordered By: Mohinder Caldwell on 03-03-2023 Albumin [Mass/Vol] 4.0 g/dL 3.2-5.0 [facility] Serum or plasma albumin/glob ulin mass ratioOrdered By: Mohinder Caldwell on 03-03-2023 Albumin/Globulin [Mass ratio] 1.1 {ratio} 0.9-2.4 [facility] Serum or plasma calcium jennifer urement (mass/volume)Ordered By: Mohinder Caldwell on 03-03-2023 Calcium [Mass/Vol] 9.1 mg/dL 8.5-10.1 [facility] Serum or plasma creatinine m easurement (mass/volume)Ordered By: Mohinder Caldwell on 03-03-2023 Creatinine [Mass/Vol] 1.27 mg/dL 0.70-1.30 [facility] Comment on above: The validity of the calculated GFR & GFRAA in patients over 70 years has not been determined. Clinical correlation is essential. Serum or plasma urea nitroge n measurement (mass/volume)Ordered By: Mohinder Caldwell on 03-03-2023 Urea nitrogen [Mass/Vol] 14 mg/dL 7-18 [facility] Thin prep Papanicolaou smear with manual screeningOrdered By: Mohinder Caldwell on 03-03-2023 Thin prep Papanicolaou smear with manual screening 31 U/L 15-37 [facility] Thin prep Papanicolaou smear with manual screening 8 5-15 [facility] Absolute lymphocyte countOrd ered By: Dr. Caldwell on 09-05-2022 Lymphocytes Auto (Unsp spec) [#/Vol] 1.02 10*3/uL 0.83-4.51 [facility] Basophil percentageOrdered B y: Dr. Caldwell on 09-05-2022 Basophil percentage 0 SEEN /hpf 0-5 [facility] Basophils/100 WBC (Bld) 0.7 % 0-1 [facility] Bilirubin [Mass/Vol] 0.50 mg/dL 0.20-1.00 [facility] Comment on above: For patients on eltr ombopag therapy, use of Dimension [place] TBIL is not recommended. Chloride [Moles/Vol] 107 mmol/L 98-107 [facility] Cholesterol [Mass/Vol] 179 mg/dL <200 [facility] Comment on above: <200 mg/dL Desirable 200-240 mg/dL Borderline >240 mg/dL High Risk Eosinophils/100 WBC (Bld) 6.0 % 0-5 [facility] Glucose [Mass/Vol] 96 mg/dL 74-106 [facility] Neutrophils (Bld) [#/Vol] 2.6 10*3/uL 2.0-7.7 [facility] Neutrophils/100 WBC (Bld) 59.5 % 47-70 [facility] Potassium [Moles/Vol] 3.8 mmol/L 3.5-5.1 [facility] Protein [Mass/Vol] 7.1 g/dL 6.4-8.2 [facility] Sodium [Moles/Vol] 137 mmol/L 136-145 [facility] Triglyceride [Mass/Vol] 70 mg/dL <199 [facility] Comment on above: The drugs N-Acetylcy steine and Metamizole may falsely depress this assay.Serum Triglycerides Reference Interval Normal <150 mg/dL Borderline high 150 - 199 mg/dL High 200 - 499 mg/dL Very High > or = 500 mg/dL WBC (Bld) [#/Vol] 4.3 10*3/uL 4.4-11.0 [facility] Bilirubin Test strip Ql (U)O rdered By: Dr. Caldwell on 09-05-2022 Bilirubin Ql (U) Negative Negative [facility] Blood erythrocytes count (nu mber/volume)Ordered By: Dr. Caldwell on 09-05-2022 RBC (Bld) [#/Vol] 4.11 10*6/uL 4.6-6.2 [facility] Blood hemoglobin measurement (mass/volume)Ordered By: Dr. Caldwell on 09-05-2022 Hemoglobin (Bld) [Mass/Vol] 12.8 g/dL 13.0-16.5 [facility] Blood lymphocytes/100 leukoc ytesOrdered By: Dr. Caldwell on 09-05-2022 Lymphocytes/100 WBC (Bld) 23.5 % 19-41 [facility] Blood monocytes/100 leukocyt esOrdered By: Dr. Caldwell on 09-05-2022 Monocytes/100 WBC (Bld) 10.1 % 0-10 [facility] Blood platelet mean volumeOr dered By: Dr. Caldwell on 09-05-2022 Platelet mean volume (Bld) [Entitic vol] 10.7 fL 6.2-12.0 [facility] Determination of erythrocyte mean corpuscular volume (MCV)Ordered By: Dr. Caldwell on 09-05-2022 MCV (RBC) [Entitic vol] 97.6 fL 80-94 [facility] Hematocrit Auto (Bld) [Volum e fraction]Ordered By: Dr. Caldwell on 09-05-2022 Hematocrit (Bld) [Volume fraction] 40.1 % 40-54 [facility] Ketones Test strip Ql (U)Ord ered By: Dr. Caldwell on 09-05-2022 Ketones Ql (U) Negative Negative [facility] Laboratory - Chemistry and C hemistry - challengeOrdered By: Dr. Caldwell on 09-05-2022 ALP [Catalytic activity/Vol] 25 U/L 45-117 [facility] ALT [Catalytic activity/Vol] 26 U/L 16-61 [facility] CO2 [Moles/Vol] 28.0 mmol/L 21.0-32.0 [facility] Globulin (S) [Mass/Vol] 3.1 g/dL 2.2-4.2 [facility] Urea nitrogen/Creatinine [Mass ratio] 15.1 mg/mg 10-20 [facility] Laboratory - Hematology and Cell countsOrdered By: Dr. Caldwell on 09-05-2022 Erythrocyte distribution width (RBC) [Entitic vol] 44.0 fL 35.1-43.9 [facility] Erythrocyte distribution width (RBC) [Ratio] 12.2 % 11.6-14.6 [facility] Immature granulocytes/100 WBC (Bld) 0.200 % 0.0-0.9 [facility] Comment on above: IG% - Immature Granu locytes (promyelocytes, myelocytes and metamyelocytes) > 1% indicates that a LEFT SHIFT is Present. MCH (RBC) [Entitic mass] 31.1 pg 27.0-32.0 [facility] Nucleated RBC/100 WBC (Bld) [Ratio] 0 % 0-5 [facility] MCHC Auto (RBC) [Mass/Vol]Or dered By: Dr. Caldwell on 09-05-2022 MCHC (RBC) [Mass/Vol] 31.9 g/dL 32-36 [facility] Mucus LM Ql (Urine sed)Order ed By: Dr. Caldwell on 09-05-2022 Mucus Ql (Urine sed) 1+ /hpf [facility] Nitrite Test strip Ql (U)Ord ered By: Dr. Caldwell on 09-05-2022 Nitrite Ql (U) Negative Negative [facility] No Panel InformationOrdered By: Dr. Caldwell on 09-05-2022 Estimated GFR (MDRD) Amer 79 mL/min >60 [facility] Comment on above: GFR Calc Estimated GFR (MDRD) Non-Af Amer 65 mL/min >60 [facility] Comment on above: Non- GFR Calc Prostate Specific Antigen Screen 1.28 ng/mL 0.00-4.00 [facility] Comment on above: This test was perfor med using the TPSA assay method for [facility]. Values obtained with differentassay methods cannot be used interchangably.When changing PSA assays in the course of monitoring apatient, additional sequential testing should be carriedout to confirm baseline values. Platelets bldOrdered By: Dr. Caldwell on 09-05-2022 Platelets (Bld) [#/Vol] 297 10*3/uL 150-450 [facility] Protein Test strip Ql (U)Ord ered By: Dr. Caldwell on 09-05-2022 Protein Ql (U) Negative Negative [facility] Serum or plasma albumin jennifer urement (mass/volume)Ordered By: Dr. Caldwell on 09-05-2022 Albumin [Mass/Vol] 4.0 g/dL 3.2-5.0 [facility] Serum or plasma albumin/glob ulin mass ratioOrdered By: Dr. Caldwell on 09-05-2022 Albumin/Globulin [Mass ratio] 1.3 {ratio} 0.9-2.4 [facility] Serum or plasma calcium jennifer urement (mass/volume)Ordered By: Dr. Caldwell on 09-05-2022 Calcium [Mass/Vol] 8.9 mg/dL 8.5-10.1 [facility] Serum or plasma cholesterol in HDL measurement (mass/volume)Ordered By: Dr. Caldwell on 09-05-2022 Cholesterol in HDL [Mass/Vol] 50 mg/dL >40 [facility] Comment on above: The drugs N-Acetylcy steine and Metamizole may falsely depress this assay. Reference Range HDL <40 mg/dL Low HDL Cholesterol HDL >or= 60 mg/dL High HDL Cholesterol Serum or plasma cholesterol in VLDL measurement (mass/volume)Ordered By: Dr. Caldwell on 09-05-2022 Cholesterol in VLDL [Mass/Vol] 14 mg/dL 5-40 [facility] Serum or plasma creatinine m easurement (mass/volume)Ordered By: Dr. Caldwell on 09-05-2022 Creatinine [Mass/Vol] 1.19 mg/dL 0.70-1.30 [facility] Comment on above: The validity of the calculated GFR & GFRAA in patients over 70 years has not been determined. Clinical correlation is essential. Serum or plasma low density lipoprotein (LDL) cholesterol measurement (mass/volume)Ordered By: Dr. Caldwell on 09-05-2022 Cholesterol in LDL [Mass/Vol] 115 mg/dL 0-130 [facility] Serum or plasma urea nitroge n measurement (mass/volume)Ordered By: Dr. Caldwell on 09-05-2022 Urea nitrogen [Mass/Vol] 18 mg/dL 7-18 [facility] Squamous epithelial cells de tection in urine sediment by light microscopyOrdered By: Dr. Caldwell on 09-05-2022 Epithelial cells.squamous LM Ql (Urine sed) 0-5 SEEN /hpf 0-5 [facility] Thin prep Papanicolaou smear with manual screeningOrdered By: Dr. Caldwell on 09-05-2022 Thin prep Papanicolaou smear with manual screening 24 U/L 15-37 [facility] Thin prep Papanicolaou smear with manual screening 2 5-15 [facility] Urine blood detectionOrdered By: Dr. Caldwell on 09-05-2022 RBC Ql (U) Negative Negative [facility] RBC Ql (U) 0 SEEN /hpf 0-5 [facility] Urine clarityOrdered By: Dr. Caldwell on 09-05-2022 Clarity (U) Clear Clear [facility] Urine color determinationOrd ered By: Dr. Caldwell on 09-05-2022 Color (U) Yellow Yellow [facility] Urine glucose detectionOrder ed By: Dr. Caldwell on 09-05-2022 Glucose Ql (U) Normal mg/dl Normal [facility] Urine leukocyte esterase det ection by dipstickOrdered By: Dr. Caldwell on 09-05-2022 Leukocyte esterase Test strip Ql (U) Negative Negative [facility] Urine pHOrdered By: Dr. Gerardo skaggs on 09-05-2022 pH (U) 6.0 [pH] 5.0 - 8.0 [facility] Urine sediment bacteria coun t by microscopy (number/high power field)Ordered By: Dr. Caldwell on 09-05-2022 Bacteria LM.HPF (Urine sed) [#/Area] 0 /[HPF] None Seen [facility] Urine specific gravity measu rementOrdered By: Dr. Caldwell on 09-05-2022 Specific gravity (U) [Rel density] 1.020 1.002-1.030 [facility] Urobilinogen Auto test strip Ql (U)Ordered By: Dr. Caldwell on 09-05-2022 Urobilinogen Ql (U) Normal mg/dl Normal [facility] Whole blood hemoglobin A1c/t otal hemoglobin ratio (mass fraction)Ordered By: Dr. Caldwell on 09-05-2022 HbA1c (Bld) [Mass fraction] 5.3 % 3.8-5.6 [facility] Comment on above: Normal < 5.7 % Predi abetic 5.7 - 6.4 % Diabetic >or= 6.5 % Please note range changes. Basophil percentageon 2021 Bilirubin [Mass/Vol] 0.50 mg/dL 0.20-1.00 [facility] Work Phone: Comment on above: For patients on eltr ombopag therapy, use of Dimension [place] TBIL is not recommended. Chloride [Moles/Vol] 107 mmol/L 98-107 [facility] Work Phone: Cholesterol [Mass/Vol] 180 mg/dL <200 [facility] Work Phone: Comment on above: <200 mg/dL Desirable 200-240 mg/dL Borderline >240 mg/dL High Risk Glucose [Mass/Vol] 97 mg/dL 74-106 [facility] Work Phone: Potassium [Moles/Vol] 4.4 mmol/L 3.5-5.1 [facility] Work Phone: Protein [Mass/Vol] 6.9 g/dL 6.4-8.2 [facility] Work Phone: Sodium [Moles/Vol] 143 mmol/L 136-145 [facility] Work Phone: Triglyceride [Mass/Vol] 76 mg/dL <199 [facility] Work Phone: Comment on above: The drugs N-Acetylcy steine and Metamizole may falsely depress this assay.Serum Triglycerides Reference Interval Normal <150 mg/dL Borderline high 150 - 199 mg/dL High 200 - 499 mg/dL Very High > or = 500 mg/dL Laboratory - Chemistry and C hemistry - challengeon 04-25-2022 ALP [Catalytic activity/Vol] 25 U/L 45-117 [facility] Work Phone: ALT [Catalytic activity/Vol] 31 U/L 16-61 [facility] Work Phone: [phone] CO2 [Moles/Vol] 27.0 mmol/L 21.0-32.0 [facility] Work Phone: [phone] Globulin (S) [Mass/Vol] 2.8 g/dL 2.2-4.2 [facility] Work Phone: [phone] Urea nitrogen/Creatinine [Mass ratio] 20.1 mg/mg 10-20 [facility] Work Phone: [phone] No Panel Informationon 04-25 Estimated GFR (MDRD) Amer 69 mL/min >60 [facility] Work Phone: [phone] Comment on above: GFR Calc Estimated GFR (MDRD) Non-Af Amer 57 mL/min >60 [facility] Work Phone: [phone] Comment on above: Non- GFR Calc Thyroid Stimulating Hormone (TSH) 4.64 uIU/mL 0.358-3.74 [facility] Work Phone: [phone] Urine Microalbumin/Creatinine Ratio 5.1 mg/g CRE <30 [facility] Work Phone: [phone] Vitamin D 25-Hydroxy 33.2 ng/mL [facility] Work Phone: [phone] Comment on above: Vitamin D 25(OH) Sta tus Range Deficiency <20 ng/mL (50nmol/L) Insufficiency 20 - 30 ng/mL (50 - 75 nmol/L) Sufficiency 30 - 100 ng/mL (75 - 250 nmol/L) Toxicity >100 ng/mL (>250 nmol/L) Serum or plasma albumin jennifer urement (mass/volume)on 04-25-2022 Albumin [Mass/Vol] 4.1 g/dL 3.2-5.0 [facility] Work Phone: [phone] Serum or plasma albumin/glob ulin mass ratioon 04-25-2022 Albumin/Globulin [Mass ratio] 1.5 {ratio} 0.9-2.4 [facility] Work Phone: [phone] Serum or plasma calcium jennifer urement (mass/volume)on 04-25-2022 Calcium [Mass/Vol] 9.2 mg/dL 8.5-10.1 [facility] Work Phone: Serum or plasma cholesterol in HDL measurement (mass/volume)on 04-25-2022 Cholesterol in HDL [Mass/Vol] 51 mg/dL >40 [facility] Work Phone: Comment on above: The drugs N-Acetylcy steine and Metamizole may falsely depress this assay. Reference Range HDL <40 mg/dL Low HDL Cholesterol HDL >or= 60 mg/dL High HDL Cholesterol Serum or plasma cholesterol in VLDL measurement (mass/volume)on 04-25-2022 Cholesterol in VLDL [Mass/Vol] 15 mg/dL 5-40 [facility] Work Phone: [phone] Serum or plasma creatinine m easurement (mass/volume)on 04-25-2022 Creatinine [Mass/Vol] 1.34 mg/dL 0.70-1.30 [facility] Work Phone: Comment on above: The validity of the calculated GFR & GFRAA in patients over 70 years has not been determined. Clinical correlation is essential. Serum or plasma low density lipoprotein (LDL) cholesterol measurement (mass/volume)on 04-25-2022 Cholesterol in LDL [Mass/Vol] 114 mg/dL 0-130 [facility] Work Phone: Serum or plasma urea nitroge n measurement (mass/volume)on 04-25-2022 Urea nitrogen [Mass/Vol] 27 mg/dL 7-18 [facility] Work Phone: [phone] Thin prep Papanicolaou smear with manual screeningon 04-25-2022 Thin prep Papanicolaou smear with manual screening 22 U/L 15-37 [facility] Work Phone: [phone] Thin prep Papanicolaou smear with manual screening 9 5-15 [facility] Work Phone: [phone] Thin prep Papanicolaou smear with manual screening 7.6 mg/L NO RANGE EST. [facility] Work Phone: [phone] Urine creatinine measurement (mass/volume)on 04-25-2022 Creatinine (U) [Mass/Vol] 149.00 mg/dL NO RANGE EST. [facility] Work Phone: Basophil percentageon 2021 Chloride [Moles/Vol] 108 mmol/L 98-[address] [facility] Work Phone: Cholesterol [Mass/Vol] 235 mg/dL <200 [facility] Work Phone: Comment on above: <200 mg/dL Desirable 200-240 mg/dL Borderline >240 mg/dL High Risk Glucose [Mass/Vol] 98 mg/dL 74-106 [facility] Work Phone: Potassium [Moles/Vol] 4.1 mmol/L 3.5-5.1 [facility] Work Phone: Sodium [Moles/Vol] 143 mmol/L 136-145 [facility] Work Phone: Triglyceride [Mass/Vol] 147 mg/dL <199 [facility] Work Phone: Comment on above: The drugs N-Acetylcy steine and Metamizole may falsely depress this assay.Serum Triglycerides Reference Interval Normal <150 mg/dL Borderline high 150 - 199 mg/dL High 200 - 499 mg/dL Very High > or = 500 mg/dL Laboratory - Chemistry and C hemistry - challengeon 03-04-2022 CO2 [Moles/Vol] 28.0 mmol/L 21.0-32.0 [facility] Work Phone: Urea nitrogen/Creatinine [Mass ratio] 12.4 mg/mg 03-14 [facility] Work Phone: No Panel Informationon 03-04 Estimated GFR (MDRD) Amer 63 mL/min >60 [facility] Work Phone: Comment on above: GFR Calc Estimated GFR (MDRD) Non-Af Amer 52 mL/min >60 [facility] Work Phone: Comment on above: Non- GFR Calc Serum or plasma calcium jennifer urement (mass/volume)on 03-04-2022 Calcium [Mass/Vol] 9.6 mg/dL 8.5-10.1 [facility] Work Phone: Serum or plasma cholesterol in HDL measurement (mass/volume)on 03-04-2022 Cholesterol in HDL [Mass/Vol] 47 mg/dL >40 [facility] Work Phone: Comment on above: The drugs N-Acetylcy steine and Metamizole may falsely depress this assay. Reference Range HDL <40 mg/dL Low HDL Cholesterol HDL >or= 60 mg/dL High HDL Cholesterol Serum or plasma cholesterol in VLDL measurement (mass/volume)on 03-04-2022 Cholesterol in VLDL [Mass/Vol] 29 mg/dL 5-40 [facility] Work Phone: Serum or plasma creatinine m easurement (mass/volume)on 03-04-2022 Creatinine [Mass/Vol] 1.45 mg/dL 0.70-1.30 [facility] Work Phone: Comment on above: The validity of the calculated GFR & GFRAA in patients over 70 years has not been determined. Clinical correlation is essential. Serum or plasma low density lipoprotein (LDL) cholesterol measurement (mass/volume)on 03-04-2022 Cholesterol in LDL [Mass/Vol] 159 mg/dL 0-130 [facility] Work Phone: Serum or plasma urea nitroge n measurement (mass/volume)on 03-04-2022 Urea nitrogen [Mass/Vol] 18 mg/dL 7-18 [facility] Work Phone: Thin prep Papanicolaou smear with manual screeningon 03-04-2022 Thin prep Papanicolaou smear with manual screening 7 5-15 [facility] Work Phone: PROGRESSon 05-02-2019 PROGRESS HNO ID: [id number] Author: Maximilian Cruz Service: ? Author Type: Physician Type: Progress Notes Filed: 05/02/2019 11:05 AM Note Text: FOLLOW UP VISIT - HERNIA NAME: Flory [facility] NO.: [id number] DATE OF SERVICE: 04/29/2019 : 1955 REFERRING PHYSICIAN: No primary care provider on file. Flory is a patient I am following for a umbilical hernia. I performed a umbilical hernia repair with mesh on April 14, 2019 using a 6.4 cm siletz tribe mesh performed an open technique. The patient currently notes minimal discomfort and slight swelling at the umbilicus. his appetite has been good. he denies fever, chills or abdominal pain. he does note some improving incisional discomfort. he notes no bulges at the operative site VITALS: Blood pressure 142/70, pulse 61, temperature 36.7 ?C (98 ?F), temperature source Temporal, resp. rate 14, weight 87.1 kg (192 lb), SpO2 98 %. On examination, the abdomen is benign. The incision is healing well without signs of infection or inflammation. There are no signs of recurrent hernia formation. Assessment IMPRESSION: status post umbilical hernia repair with mesh PLAN: If the patient notes any problems, he should contact me immediately. he may return to his regular activities as tolerated, with the exception of no lifting greater than 20 pounds for the next 6 weeks. Diagnoses: (K42.9) Umbilical hernia without obstruction and without gangrene (primary encounter diagnosis) Return to Clinic: The patient is instructed to follow-up with me as needed. [facility] (GENSWS ) ANGELFLORY ARELLANO ([id number]) 1955 M Date Time Provider Department 04/29/19 9:00 AM MAXIMILIAN CRUZ During your visit today, we recorded the following information about you: Temperature Pulse Respiration Blood pressure 98 degrees 61/minute 14/minute 142/70 Weight 87.1 kg Maximilian Cruz MD 05/02/2019 11:05 AM Signed FOLLOW UP VISIT - HERNIA NAME: Flory [facility] NO.: [id number] DATE OF SERVICE: 04/29/2019 : 1955 REFERRING PHYSICIAN: No primary care provider on file. Flory is a patient I am following for a umbilical hernia. I performed a umbilical hernia repair with mesh on April 14, 2019 using a 6.4 cm sile[place] tribe mesh performed an open technique. The patient currently notes minimal discomfort and slight swelling at the umbilicus. his appetite has been good. he denies fever, chills or abdominal pain. he does note some improving incisional discomfort. he notes no bulges at the operative site VITALS: Blood pressure 142/70, pulse 61, temperature 36.7 ?C (98 ?F), temperature source Temporal, resp. rate 14, weight 87.1 kg (192 lb), SpO2 98 %. On examination, the abdomen is benign. The incision is healing well without signs of infection or inflammation. There are no signs of recurrent hernia formation. Assessment IMPRESSION: status post umbilical hernia repair with mesh PLAN: If the patient notes any problems, he should contact me immediately. he may return to his regular activities as tolerated, with the exception of no lifting greater than 20 pounds for the next 6 weeks. Diagnoses: (K42.9) Umbilical hernia without obstruction and without gangrene (primary encounter diagnosis) Return to Clinic: The patient is instructed to follow-up with me as needed. Maximilian Cruz MD Referring Provider: MAXIMILIAN CRUZ [[id number]] Allergies As of Date: 04/29/2019 (No Known Allergies) Date Reviewed: 04/29/2019 Reviewed by: Larissa Vergara LPN - Fully Assessed Reason for Visit: Post Op [174] Primary Visit Diagnosis:Umbilical hernia without obstruction and without gangrene [K42.9] Prescriptions as of 04/29/2019 Sig: FENOFIBRATE 120 MG TABLET Fenofibrate Fenofibrate Activ* METFORMIN 1,000 MG TABLET metFORMIN Metformin Hcl Activ* LEVOTHYROXINE 112 MCG TABLET ASPIRIN 81 MG TABLET,DELAYED * Aspirin Aspirin Active 81 MG * Problem List As Of Date: 04/29/2019 (None) Encounter Status:Closed by MAXIMILIAN CRUZ MD on 05/02/19 [facility] PROGRESSon 04-16-2019 PROGRESS HNO ID: [id number] Author: Maximilian Cruz Service: ? Author Type: Physician Type: Progress Notes Filed: 04/16/2019 8:20 PM Note Text: OPERATIVE NOTATION FOR [facility] SURGICAL PROCEDURE. April 14, 2019 Flory Gomez 1955 [id number] male PROCEDURE: umbilical hernia repair - with mesh, no add on - [id number] SURGEON: Ana Cruz M.D. FACS CAGE LOADER: None DEPT: WQ PROVIDER: [id number] Cruz MD POS: [id number] DIAGNOSIS: (K42.9) Umbilical hernia without obstruction and without gangrene (primary encounter diagnosis) ASA CLASS: 2 - mild FINDINGS: COMPLICATIONS: None PMHx - PAST MEDICAL HISTORY Diagnosis Date - Arthritis - Hypercholesteremia - Hypothyroid - Umbilical hernia COMORBIDITIES - None Post Op Occurrences - None Wound Classification - Clean Operative note dictated in the [facility] dictation system. Maximilian Cruz MD [facility] CNOVon 03-19-2019 CNOV Office Visit (GENSWS ) ANGELFOLRY ARELLANO ([id number]) 1955 M Date Time Provider Department 03/19/19 1:30 PM MAXIMILIAN CRUZ GENSWS During your visit today, we recorded the following information about you: Temperature Pulse Respiration Blood pressure 97.9 degrees 63/minute 18/minute 150/66 Weight Height 83.5 kg 1.702 m Larissa Vergara LPN 03/19/2019 1:35 PM Signed REVIEW OF SYSTEMS: General: The patient denies fatigue, denies weight loss, denies weight gain, denies feeling hot, and denies feelings of cold. Eyes: The patient denies glaucoma, denies eye injury/surgery, does not wear glasses or contacts. Ear/Nose/Throat: The patient denies allergies, denies hayfever, NOTES ear infections, and denies bloody noses. Cardiovascular: The patient denies chest pain, denies heart disease, denies high blood pressure,denies cardiac stent, denies prior heart attack, denies irregular heart beat, NOTES high cholesterol, denies poor circulation, denies heart failure, other cardiac issues, denies claudication, denies cold feet, denies peripheral arterial stent. Respiratory: The patient denies tuberculosis, denies pneumonia, denies frequent cough, denies pulmonary embolism, denies shortness of breath, and denies coughing up blood. Gastrointestinal: The patient denies difficulty swallowing, denies acid reflux, denies ulcers, denies vomiting, denies jaundice/hepatitis, denies gallbladder problems, denies black or tarry stools, denies hemorrhoids, denies bleeding from rectum, denies diverticulitis, denies constipation, denies diarrhea, denies loss of stool control, and NOTES hernias. Kidney/Bladder: The patient denies kidney stones, denies urine infections, and denies bloody urine. Skin: The patient denies a history of skin cancer, denies bleeding/changing moles, and denies a history of skin rash. Neurologic: The patient denies a history of epilepsy/convulsions, denies headaches, denies head/spinal injuries, and denies stroke/TIA. Psychiatric: The patient denies psychiatric medications, denies depression, and denies voices, denies substance abuse. Endocrine: The patient NOTES thyroid disorders, denies diabetes, and denies hormonal problems. Hematologic: The patient denies a history of bruising, denies bleeding, and denies anemia, denies blood clots. Infections: The patient denies a history of measles and mumps, denies rheumatic fever, and denies sexually transmitted diseases. Musculoskeletal: The patient denies back pain/injury, denies back problems, denies sciatica, denies knee/foot trouble, NOTES arthritis, or denies gout. When was patient's last Mammogram screening? N/A Last Colonoscopy: None Larissa Cruz MD 03/19/2019 3:02 PM Signed HISTORY AND PHYSICAL Flory Gomez 1955 REFERRING PHYSICIAN: MD Jason CHIEF COMPLAINT: Umbilical Hernia Repair- HPI: Flory is a 63 year old male with a complaint of a bulge and discomfort in his umbilical region. The patient notes discomfort in this area with lifting and coughing. He has noticed a hernia there which has been relatively asymptomatic for a very long time. He still works lifting heavy items. On March 14 he was lifting pallets and/or stones and noted pain at his umbilicus. He presented to [facility] emergency department. The hernia was able to reduced with gentle pressure. He follows up now for semi-electively repair of his umbilical hernia. The patient notes no symptoms of bowel obstruction and denies nausea or vomiting. The patient was seen by the emergency room physician who felt the patient has a hernia. Flory was referred for evaluation and treatment. PAST MEDICAL HISTORY Diagnosis Date - Arthritis - Hypercholesteremia - Hypothyroid - Umbilical hernia PAST SURGICAL HISTORY Procedure Laterality Date - NONE Current Outpatient Medications: Fenofibrate 120 mg tab Fenofibrate Fenofibrate Active 160 MG DAILY March 14, 2019 4:35pm 03-14-2019 [facility] ([id number]) metFORMIN (GLUCOPHAGE) 1,000 mg tablet metFORMIN Metformin Hcl Active 500 MG DAILY March 14, 2019 4:35pm 03-14-2019 [facility] ([id number]) aspirin, enteric coated (ASPIRIN, ENTERIC COATED) 81 mg EC tablet Aspirin Aspirin Active 81 MG DAILY@0800 March 14, 2019 5:15pm 03-14-2019 [facility] ([id number]) levothyroxine (SYNTHROID) 112 mcg tablet No current facility-administered medications for this visit. ALLERGIES: Patient has no known allergies. PERSONAL HISTORY: Social History Socioeconomic History Marital status: Spouse name: Not on file Number of children: Not on file Years of education: Not on file Highest education level: Not on file Occupational History Not on file Social Needs Financial resource strain: Not on file Food insecurity: Worry: Not on file Inability: Not on file Transportation needs: Medical: Not on file Non-medical: Not on file Tobacco Use Smoking status: Former Smoker Smokeless tobacco: Never Used Substance and Sexual Activity Alcohol use: Yes Comment: once or twice a week Drug use: Not on file Sexual activity: Not on file Lifestyle Physical activity: Days per week: Not on file Minutes per session: Not on file Stress: Not on file Relationships Social connections: Talks on phone: Not on file Gets together: Not on file Attends zoroastrian service: Not on file Active member of club or organization: Not on file Attends meetings of clubs or organizations: Not on file Relationship status: Not on file Intimate partner violence: Fear of current or ex partner: Not on file Emotionally abused: Not on file Physically abused: Not on file Forced sexual activity: Not on file Other Topics Concerns: Not on file Social History Narrative Not on file FAMILY HISTORY: FAMILY HISTORY Problem Relation Age of Onset - Heart Mother - Stroke Father - Diabetes Father REVIEW OF SYMPTOMS: The review of systems data was entered by the nurse and reviewed by id Nursing Notes: Larissa Vergara LPN 03/19/2019 1:35 PM Signed REVIEW OF SYSTEMS: General: The patient denies fatigue, denies weight loss, denies weight gain, denies feeling hot, and denies feelings of cold. Eyes: The patient denies glaucoma, denies eye injury/surgery, does not wear glasses or contacts. Ear/Nose/Throat: The patient denies allergies, denies hayfever, NOTES ear infections, and denies bloody noses. Cardiovascular: The patient denies chest pain, denies heart disease, denies high blood pressure,denies cardiac stent, denies prior heart attack, denies irregular heart beat, NOTES high cholesterol, denies poor circulation, denies heart failure, other cardiac issues, denies claudication, denies cold feet, denies peripheral arterial stent. Respiratory: The patient denies tuberculosis, denies pneumonia, denies frequent cough, denies pulmonary embolism, denies shortness of breath, and denies coughing up blood. Gastrointestinal: The patient denies difficulty swallowing, denies acid reflux, denies ulcers, denies vomiting, denies jaundice/hepatitis, denies gallbladder problems, denies black or tarry stools, denies hemorrhoids, denies bleeding from rectum, denies diverticulitis, denies constipation, denies diarrhea, denies loss of stool control, and NOTES hernias. Kidney/Bladder: The patient denies kidney stones, denies urine infections, and denies bloody urine. Skin: The patient denies a history of skin cancer, denies bleeding/changing moles, and denies a history of skin rash. Neurologic: The patient denies a history of epilepsy/convulsions, denies headaches, denies head/spinal injuries, and denies stroke/TIA. Psychiatric: The patient denies psychiatric medications, denies depression, and denies voices, denies substance abuse. Endocrine: The patient NOTES thyroid disorders, denies diabetes, and denies hormonal problems. Hematologic: The patient denies a history of bruising, denies bleeding, and denies anemia, denies blood clots. Infections: The patient denies a history of measles and mumps, denies rheumatic fever, and denies sexually transmitted diseases. Musculoskeletal: The patient denies back pain/injury, denies back problems, denies sciatica, denies knee/foot trouble, NOTES arthritis, or denies gout. When was patient's last Mammogram screening? N/A Last Colonoscopy: None Larissa Vergara LPN PHYSICAL EXAMINATION: General: The patient is 63 year old male, well nourished, well hydrated in no acute distress. The patient is oriented to time, place, and person. VITALS: Blood pressure 150/66, pulse 63, temperature 36.6 ?C (97.9 ?F), temperature source Temporal Artery, resp. rate 18, height 170.2 cm (5' 7), weight 83.5 kg (184 lb), SpO2 98 %. Body mass index is 28.82 kg/m?. HEENT: Normal cephalic, ataumatic, pupils are equally round, sclera are anicteric, mucous membranes are moist, oropharynx is clear. Neck has no masses, asymmetry or lymphadenopathy. Thyroid is unremarkable. Respiratory: Clear to auscultation and percussion. Normal respiratory excursion and pattern. Cardiac: Examination is regular rate and rhythm. Abdominal exam: Soft, nontender, with no palpable masses. No hepatosplenomegaly. A small, reducible umbilical hernia, no right or left inguinal hernias are noted Rectal exam: exam deferred Extremities: no clubbing, cyanosis or edema. No adenopathy. Other: LABORATORY VALUES: As Noted RADIOLOGIC STUDIES: As Noted Assessment IMPRESSION: umbilical hernia PLAN: My plan is to perform a umbilical hernia repair with possible mesh. The planned surgical procedure was discussed extensively with the patient. The risks, benefits, anticipated outcomes and possible complications were mentioned. Flory brownands that all hernia repair surgery has a chance of recurrence and/or chronic post operative pain. My staff has also explained the procedure in understandable terms and the patient was given the option to take printed material concerning the planned procedure. The patient had the opportunity to ask questions concerning the planned procedure. The patient freely consents to the planned procedure. A letter was sent to Dr. Priest primary care provider on file. indicating the above finding for this patient. Diagnoses: (K42.9) Umbilical hernia without obstruction and without gangrene (primary encounter diagnosis) Anticipated CPT Code: umbilical hernia repair - 46946-819 Anticipated Anesthetic: General Patient weight: Blood pressure 150/66, pulse 63, temperature 36.6 ?C (97.9 ?F), temperature source Temporal Artery, resp. rate 18, height 170.2 cm (5' 7), weight 83.5 kg (184 lb), SpO2 98 %. BMI: Body mass index is 28.82 kg/m?. Planned antibiotic: Ancef 2gm IVPB netsuite consultant to OR SCDs needed - Yes Return to Clinic: The patient is instructed to follow-up with me 1 week post operatively. Maximilian Cruz MD Referring Provider: SELF [[id number]] Allergies As of Date: 03/19/2019 (No Known Allergies) Date Reviewed: 03/19/2019 Reviewed by: Maximilian Cruz - Fully Assessed Reason for Visit: Umbilical Hernia Repair-2 [[id number]] Primary Visit Diagnosis:Umbilical hernia without obstruction and without gangrene [K42.9] Prescriptions as of 03/19/2019 Sig: FENOFIBRATE 120 MG TABLET Fenofibrate Fenofibrate Activ* METFORMIN 1,000 MG TABLET metFORMIN Metformin Hcl Activ* ASPIRIN 81 MG TABLET,DELAYED * Aspirin Aspirin Active 81 MG * LEVOTHYROXINE 112 MCG TABLET Problem List As Of Date: 03/19/2019 (None) Visit Notes: >> Larissa Vergara LPN Fri Mar 19, 2019 1:33 PM Status: Signed REVIEW OF SYSTEMS: General: The patient denies fatigue, denies weight loss, denies weight gain, denies feeling hot, and denies feelings of cold. Eyes: The patient denies glaucoma, denies eye injury/surgery, does not wear glasses or contacts. Ear/Nose/Throat: The patient denies allergies, denies hayfever, NOTES ear infections, and denies bloody noses. Cardiovascular: The patient denies chest pain, denies heart disease, denies high blood pressure,denies cardiac stent, denies prior heart attack, denies irregular heart beat, NOTES high cholesterol, denies poor circulation, denies heart failure, other cardiac issues, denies claudication, denies cold feet, denies peripheral arterial stent. Respiratory: The patient denies tuberculosis, denies pneumonia, denies frequent cough, denies pulmonary embolism, denies shortness of breath, and denies coughing up blood. Gastrointestinal: The patient denies difficulty swallowing, denies acid reflux, denies ulcers, denies vomiting, denies jaundice/hepatitis, denies gallbladder problems, denies black or tarry stools, denies hemorrhoids, denies bleeding from rectum, denies diverticulitis, denies constipation, denies diarrhea, denies loss of stool control, and NOTES hernias. Kidney/Bladder: The patient denies kidney stones, denies urine infections, and denies bloody urine. Skin: The patient denies a history of skin cancer, denies bleeding/changing moles, and denies a history of skin rash. Neurologic: The patient denies a history of epilepsy/convulsions, denies headaches, denies head/spinal injuries, and denies stroke/TIA. Psychiatric: The patient denies psychiatric medications, denies depression, and denies voices, denies substance abuse. Endocrine: The patient NOTES thyroid disorders, denies diabetes, and denies hormonal problems. Hematologic: The patient denies a history of bruising, denies bleeding, and denies anemia, denies blood clots. Infections: The patient denies a history of measles and mumps, denies rheumatic fever, and denies sexually transmitted diseases. Musculoskeletal: The patient denies back pain/injury, denies back problems, denies sciatica, denies knee/foot trouble, NOTES arthritis, or denies gout. When was patient's last Mammogram screening? N/A Last Colonoscopy: None Larissa Vergara LPN Letter Text Encounter Status:Closed by MAXIMILIAN CRUZ MD on 03/19/19 Normal [facility] PROGRESSon 03-19-2019 PROGRESS HNO ID: [id number] Author: Maximilian Cruz Service: ? Author Type: Physician Type: Progress Notes Filed: 03/19/2019 3:02 PM Note Text: HISTORY AND PHYSICAL Flory Gomez 1955 REFERRING PHYSICIAN: MD Jason CHIEF COMPLAINT: Umbilical Hernia Repair- HPI: Flory is a 63 year old male with a complaint of a bulge and discomfort in his umbilical region. The patient notes discomfort in this area with lifting and coughing. He has noticed a hernia there which has been relatively asymptomatic for a very long time. He still works lifting heavy items. On March 14 he was lifting pallets and/or stones and noted pain at his umbilicus. He presented to [facility] emergency department. The hernia was able to reduced with gentle pressure. He follows up now for semi-electively repair of his umbilical hernia. The patient notes no symptoms of bowel obstruction and denies nausea or vomiting. The patient was seen by the emergency room physician who felt the patient has a hernia. Flory was referred for evaluation and treatment. PAST MEDICAL HISTORY Diagnosis Date - Arthritis - Hypercholesteremia - Hypothyroid - Umbilical hernia PAST SURGICAL HISTORY Procedure Laterality Date - NONE Current Outpatient Medications: Fenofibrate 120 mg tab Fenofibrate Fenofibrate Active 160 MG DAILY March 14, 2019 4:35pm 03-14-2019 [facility] ([id number]) metFORMIN (GLUCOPHAGE) 1,000 mg tablet metFORMIN Metformin Hcl Active 500 MG DAILY March 14, 2019 4:35pm 03-14-2019 [facility] ([id number]) aspirin, enteric coated (ASPIRIN, ENTERIC COATED) 81 mg EC tablet Aspirin Aspirin Active 81 MG DAILY@0800 March 14, 2019 5:15pm 03-14-2019 [facility] ([id number]) levothyroxine (SYNTHROID) 112 mcg tablet No current facility-administered medications for this visit. ALLERGIES: Patient has no known allergies. PERSONAL HISTORY: Social History Socioeconomic History Marital status: Spouse name: Not on file Number of children: Not on file Years of education: Not on file Highest education level: Not on file Occupational History Not on file Social Needs Financial resource strain: Not on file Food insecurity: Worry: Not on file Inability: Not on file Transportation needs: Medical: Not on file Non-medical: Not on file Tobacco Use Smoking status: Former Smoker Smokeless tobacco: Never Used Substance and Sexual Activity Alcohol use: Yes Comment: once or twice a week Drug use: Not on file Sexual activity: Not on file Lifestyle Physical activity: Days per week: Not on file Minutes per session: Not on file Stress: Not on file Relationships Social connections: Talks on phone: Not on file Gets together: Not on file Attends zoroastrian service: Not on file Active member of club or organization: Not on file Attends meetings of clubs or organizations: Not on file Relationship status: Not on file Intimate partner violence: Fear of current or ex partner: Not on file Emotionally abused: Not on file Physically abused: Not on file Forced sexual activity: Not on file Other Topics Concerns: Not on file Social History Narrative Not on file FAMILY HISTORY: FAMILY HISTORY Problem Relation Age of Onset - Heart Mother - Stroke Father - Diabetes Father REVIEW OF SYMPTOMS: The review of systems data was entered by the nurse and reviewed by id Nursing Notes: Larissa Vergara LPN 03/19/2019 1:35 PM Signed REVIEW OF SYSTEMS: General: The patient denies fatigue, denies weight loss, denies weight gain, denies feeling hot, and denies feelings of cold. Eyes: The patient denies glaucoma, denies eye injury/surgery, does not wear glasses or contacts. Ear/Nose/Throat: The patient denies allergies, denies hayfever, NOTES ear infections, and denies bloody noses. Cardiovascular: The patient denies chest pain, denies heart disease, denies high blood pressure,denies cardiac stent, denies prior heart attack, denies irregular heart beat, NOTES high cholesterol, denies poor circulation, denies heart failure, other cardiac issues, denies claudication, denies cold feet, denies peripheral arterial stent. Respiratory: The patient denies tuberculosis, denies pneumonia, denies frequent cough, denies pulmonary embolism, denies shortness of breath, and denies coughing up blood. Gastrointestinal: The patient denies difficulty swallowing, denies acid reflux, denies ulcers, denies vomiting, denies jaundice/hepatitis, denies gallbladder problems, denies black or tarry stools, denies hemorrhoids, denies bleeding from rectum, denies diverticulitis, denies constipation, denies diarrhea, denies loss of stool control, and NOTES hernias. Kidney/Bladder: The patient denies kidney stones, denies urine infections, and denies bloody urine. Skin: The patient denies a history of skin cancer, denies bleeding/changing moles, and denies a history of skin rash. Neurologic: The patient denies a history of epilepsy/convulsions, denies headaches, denies head/spinal injuries, and denies stroke/TIA. Psychiatric: The patient denies psychiatric medications, denies depression, and denies voices, denies substance abuse. Endocrine: The patient NOTES thyroid disorders, denies diabetes, and denies hormonal problems. Hematologic: The patient denies a history of bruising, denies bleeding, and denies anemia, denies blood clots. Infections: The patient denies a history of measles and mumps, denies rheumatic fever, and denies sexually transmitted diseases. Musculoskeletal: The patient denies back pain/injury, denies back problems, denies sciatica, denies knee/foot trouble, NOTES arthritis, or denies gout. When was patient's last Mammogram screening? N/A Last Colonoscopy: None Larissa Vergara LPN PHYSICAL EXAMINATION: General: The patient is 63 year old male, well nourished, well hydrated in no acute distress. The patient is oriented to time, place, and person. VITALS: Blood pressure 150/66, pulse 63, temperature 36.6 ?C (97.9 ?F), temperature source Temporal Artery, resp. rate 18, height 170.2 cm (5' 7), weight 83.5 kg (184 lb), SpO2 98 %. Body mass index is 28.82 kg/m?. HEENT: Normal cephalic, ataumatic, pupils are equally round, sclera are anicteric, mucous membranes are moist, oropharynx is clear. Neck has no masses, asymmetry or lymphadenopathy. Thyroid is unremarkable. Respiratory: Clear to auscultation and percussion. Normal respiratory excursion and pattern. Cardiac: Examination is regular rate and rhythm. Abdominal exam: Soft, nontender, with no palpable masses. No hepatosplenomegaly. A small, reducible umbilical hernia, no right or left inguinal hernias are noted Rectal exam: exam deferred Extremities: no clubbing, cyanosis or edema. No adenopathy. Other: LABORATORY VALUES: As Noted RADIOLOGIC STUDIES: As Noted Assessment IMPRESSION: umbilical hernia PLAN: My plan is to perform a umbilical hernia repair with possible mesh. The planned surgical procedure was discussed extensively with the patient. The risks, benefits, anticipated outcomes and possible complications were mentioned. Flory brownands that all hernia repair surgery has a chance of recurrence and/or chronic post operative pain. My staff has also explained the procedure in understandable terms and the patient was given the option to take printed material concerning the planned procedure. The patient had the opportunity to ask questions concerning the planned procedure. The patient freely consents to the planned procedure. A letter was sent to Dr. Priest primary care provider on file. indicating the above finding for this patient. Diagnoses: (K42.9) Umbilical hernia without obstruction and without gangrene (primary encounter diagnosis) Anticipated CPT Code: umbilical hernia repair - 45430-467 Anticipated Anesthetic: General Patient weight: Blood pressure 150/66, pulse 63, temperature 36.6 ?C (97.9 ?F), temperature source Temporal Artery, resp. rate 18, height 170.2 cm (5' 7), weight 83.5 kg (184 lb), SpO2 98 %. BMI: Body mass index is 28.82 kg/m?. Planned antibiotic: Ancef 2gm IVPB netsuite consultant to OR SCDs needed - Yes Return to Clinic: The patient is instructed to follow-up with me 1 week post operatively. Maximilian Cruz MD [facility] Encounters Encounter Date Encounter Type Care Provider Facility Start: 03-29-2025 ambulatory Mohinder Newfolden Facility:[facility] Start: 08-26-2024 End: 08-26-[address] Mohinder Caldwell MD Work Phone: [facility] Work Phone: Start: 08-26-2024 End: 08-26-[address] Mohinder Caldwell MD -[facility] Start: 08-26-2024 End: 08-26-2024 ambulatory Mohinder Caldwell Facility:[facility] Start: 08-05-2023 End: 08-05-2023 ambulatory [facility] Work Phone: Start: 08-05-2023 End: 08-05-2023 Patient encounter procedure [facility] Start: 07-24-2023 End: 07-24-2023 ambulatory [facility] Work Phone: Start: 07-24-2023 End: 07-24-2023 Discharged [facility] Work Phone: Start: 03-03-2023 End: 03-03-2023 ambulatory [facility] Work Phone: Start: 03-03-2023 End: 03-03-2023 Patient encounter procedure [facility] Start: 09-05-2022 End: 09-05-2022 ambulatory [facility] Work Phone: Start: 09-05-2022 End: 09-05-2022 Patient encounter procedure [facility] Start: 04-25-2022 End: 04-25-2022 ambulatory [facility] Work Phone: Start: 04-25-2022 End: 04-25-2022 Patient encounter procedure [facility] Start: 03-04-2022 End: 03-04-2022 Patient encounter procedure [facility] Payers Date Payer Category Payer Self-pay [id number] 2024 Unknown [id number] Medicare MEDICARE PART A B [id number] Unknown ANTHEM [id number] Unknown MEDICAL [facility] [id number] Unknown [id number] Unknown [id number] Social History Date Type Detail Facility Start: 04-07-2019 End: 04-07-2019 Tobacco smoking status NHIS Unknown if ever smoked [facility] Start: 04-07-2019 Non-smoker [facility] Start: 1955 Sex Assigned At Male [facility] Start: 04-07-2019 Tobacco smoking stat us NHIS Ex-smoker (finding) [facility] Start: 08-31-2024 Sex Male (finding) [facility] Medical Equipment Procedure Code Equipment Code Equipment Origin al Text Equipment Identifier Dates Repair, hernia, umbilical, using mesh MESH,[facility]LEX [facility] 6.4CM FDA Start: 04-14-2019 Repair, hernia, umbilical, using mesh MESH,VENTLEX [facility] MED 6.4CM FDA Start: 04-14-2019 Repair, hernia, umbilical, using mesh MESH,VENTLEX [facility] 6.4CM FDA Start: 04-14-2019 Repair, hernia, umbilical, using mesh MESH,VENTLEX [facility] 6.4CM FDA Start: 04-14-2019 Repair, hernia, umbilical, using mesh MESH,VENTLEX [facility] MED 6.4CM FDA Start: 04-14-2019 Repair, hernia, umbilical, using mesh MESH,VENTLEX [facility] MED 6.4CM FDA Start: 04-14-2019 Discharge summary 07-24-2023 Note Date & Type Note Facility 07-24-2023 Discharge summary Note Date/Time July 24, 2023 12:29pm [facility] [facility] [address] [place] [address] / REHABILITATION SERVICES DISCHARGE SUMMARY MR#: [id number] Acct: [id number] Name: FLORY GOMEZ Rep #: [id number] : 1955 68 From: Cert. SUE [place], [facility] Referring Dr.: Dr. Mohinder Caldwell MD Status: REG RCR Insurance: [facility] MEDICARE OTHER SELF PAY INSURANCE Discharge Summary D/C summary: It has been my pleasure to treat FLORY GOMEZ referred by Dr. Mohinder Caldwell MD, with the diagnosis of RIGHT ROTATOR CUFF TENDONITIS for a total of 5 visit(s). Discharge Date: Please see the following information for a summary of their discharge status. Subjective Subjective: Ready for d/c ..doing good But unable to lift heavy Pain Right Shoulder: Pain Intensity (Out of 10): 0 Overall Improvement % Improvement: 90 Objective Objective/Function: POSTURE: rounded shoulders head forward NEURO: c/o fingers 1st/2nd ,forearm paresthesia/tingling ,reflexes C5-6-7 2/3 PALPATION: right UT CERVICAL ROM: flexion min loss pain scapular, rotation/lateral flexion min loss extension min loss MMT: RTC 4/5 ,DELTOID 4-/5 AROM: shoulder flexion 155 degrees ,abduction 150 degrees ,ER 90 degrees ,IR L1 Goals Goal 1:: Patient to be I with HEP Goal 2:: Patient to demonstrate 50% improvement with less symptoms in arm left Goal 3:: Patient improve cervical ROM for function of recovery for job demands Goal 4:: Patient to improve neck oswestry by 5 points to improve QOL Plan Plan: D/C D/C Information d/c sentence: If there are questions or concerns regarding this patient's physical therapy, please feel free to call me at [phone]. Thank you for the referral of thispatient. Sincerely, Dann Shell PT, Cert MDT, OCS Balance/Gait/Functional tests Balance/Special Test Scores Oswestry Neck Score: 3 Improvement % Improvement: 90 <Electronically signed by Dann Shell PT, Cert. MDT, OCS> 07/24/23 1412 CC: Dr. Mohinder Caldwell MD ~ JLA Signed [facility] Work Phone: Evaluation note Note Date & Type Note Facility Evaluation note No assessment information availa ble [facility] Work Phone: Reason for referral (narrative) Note Date & Type Note Facility Reason for referral (narrative) No reason for referral information available [facility] Work Phone: Summary Purpose Family History No Family History Records FoundNo Family History Records Found Advance Directives No Advanced Directives Records Found Advance Directive Response Recorded Date/ Time Living Will No March 28 9:32am Power of Prospecting Driller Helper No March 28, 2020 9:32am Advance Directive Response Recorded Date/ Time Living Will No March 28 10:32am Power of Prospecting Driller Helper No March 28, 2020 10:32am Procedure Findings Note Operative Note (Enc) (GENSWS ) Progress Notes: Maximilian Cruz MD 04/16/2019 8:20 PM Signed OPERATIVE NOTATION FOR [facility] SURGICAL PROCEDURE. April 14, 2019 Flory Gomez 1955 [id number] male PROCEDURE: umbilical hernia repair - with mesh, no add on - [id number] SURGEON: Ana Cruz M.D. FACS CAGE LOADER: None DEPT: W PROVIDER: [id number] Cruz MD POS: [id number] DIAGNOSIS: (K42.9) Umbilical hernia without obstruction and without gangrene (primary encounter diagnosis) ASA CLASS: 2 - mild FINDINGS: COMPLICATIONS: None PMHx - PAST MEDICAL HISTORY Diagnosis Date - Arthritis - Hypercholesteremia - Hypothyroid - Umbilical hernia COMORBIDITIES - None Post Op Occurrences - None Wound Classification - Clean Operative note dictated in the [facility] dictation system. Maximilian Cruz MD Encounter Status:Closed by MAXIMILIAN CRUZ MD on 04/16/19 Encounter Number: (more content not included)... Chief Complaint and Reason for Visit Chief Complaint ROTATOR CUFF TO Pietro AX Additional Source Comments (unrecognized sect ion and content) No Status Records FoundNo Status Records Found INFORMATION SOURCE (unrecogn ized section and content) DATE CREATED AUTHOR 05/02/2019 [facility] DATE CREATED AUTHOR AUTHOR'S ORGANIZ ATION 03/30/2025 [facility] Goals (unrecognized section and content) Goals may be documented in a n alternate sectionGoals may be documented in an alternate sectionGoals may be documented in an alternate sectionGoals may be documented in an alternate sectionGoals may be documented in an alternate sectionGoals may be documented in an alternate section Care Teams (unrecognized sec tion and content) Team Status: Active Member Role Status Dates Dr. Mohinder Caldwell MD Family Provider Active Dr. Mohinder Caldwell MD Primary Care Provider Active Team Status: Inactive Member Role Status Dates Dr. Mohinder Caldwell MD Primary Care Provide r, Attending Provider, Referring Provider Active Team Status: Inactive Member Role Status Dates Dr. Mohinder Caldwell MD Primary Care Provider, Attending P rovider Active Team Status: Inactive Member Role Status Dates Dr. Mohinder Caldwell MD Primary Care Provider Active Start: August 26, 2024 End: August 26, 2024 Dr. Mohinder Caldwell MD Attending Provider Active St art: August 26, 2024 End: August 26, 2024 Dr. Mohinder Caldwell MD Referring Provider Active St art: August 26, 2024 End: August 26, 2024 FOR RECORDS PERTAINING TO PATIENTS WHO ARE OR HAVE BEEN ENROLLED IN A CHEMICAL DEPENDENCY/SUBSTANCEABUSE PROGRAM, SOME INFORMATION MAY BE OMITTED. This clinical summary was aggregated from multiple sources. Caution should be exercised in using it in the provision of clinical care. This summary normalizes information from multiple sources, and as a consequence, information in this document may materially change the coding, format and clinical context of patient data. In addition, data may be omitted in some cases. CLINICAL DECISIONS SHOULD BE BASED ON THE PRIMARY CLINICAL RECORDS. [facility] [employer], [facility]. provides no warranty or guarantee of the accuracy or completeness of information in this document.
[2025-05-23 12:13] LABS: Hematocrit 39.5 % (40-54); Hemoglobin 13.1 g/dL (13.0-16.5); Immature Granulocytes Count 0.020 X10^3/uL (0.0-0.0); Mean Corp Hgb Conc 33.2 g/dL (32-36); Mean Corpuscular Volume 97.1 fL (80-94); Mean Platelet Vol. 11.0 fl (6.2-12.0); NRBC Flagged by Analyzer 0 % (0-5); Platelet Count 279 K/mm3 (150-450); RBC Distribution Width CV 11.9 % (11.6-14.6); RBC Distribution Width SD 42.5 fl (35.1-43.9); Red Blood Count 4.07 M/mm3 (4.6-6.2); White Blood Count 5.0 K/mm3 (4.4-11.0)
[2025-05-23 12:25] LABS: Creatinine, Urine (random) 205.00 mg/dL (39.00-259.00); Microalbumin,Random Urine 13.4 mg/L (<20 mg/L)
[2025-05-23 12:33] LABS: AST(SGOT) 34 U/L (<=37); Alanine Aminotransfer ALT/SGPT 25 U/L (<=46); Albumin, Serum 4.6 g/dL (3.4-4.8); Alkaline Phosphatase 23 U/L (40-129); Anion Gap 9 (7-18); BUN 17 mg/dL (4-19); BUN/Creat Ratio 14.0 RATIO (10-20); Calcium,Total 9.5 mg/dL (7.6-11.0); Carbon Dioxide 27.6 mmol/L (20.0-29.0); Chloride 106 mmol/L (96-106); Cholesterol 180 mg/dL (<=200); Globulin 2.4 g/dL (2.2-4.2); Glucose 99 mg/dL (70-99); Low Density Lipoprotein Calc. 118 mg/dL; Potassium 4.4 mmol/L (3.5-5.1); Triglycerides 65 mg/dL; Very Low Density Lipoprotein 13 mg/dL (5-40); cholesterol:hdl ratio screen 3.64
== END | disposition home or self-care (01) ==
LOC: MTLAB 10:11
PROVIDERS: PCP Family Medicine; Referring Provider Family Medicine; Visit Provider Family Medicine
DX: I12.9 Hypertensive chronic kidney disease with stage 1 through stage 4 chronic kidney disease, or unspecified chronic kidney disease (principal); N18.32 Chronic kidney disease, stage 3b; E88.810 Metabolic syndrome
CPT/HCPCS: 36415; 80053; 80061; 82043; 82570; 83036; 85025